=== PATIENT | male | born 1965 | race American Indian/Alaskan Native ===

== ENCOUNTER 2016-04-16 19:32 | Emergency (ER) | payer MEDICAID, OTHER ==
[2016-04-16 19:47] VITALS: BP 142/86
[2016-04-16] MEDS ORDERED: Bacitracin Oint 1 GM U/D Packet TOP ONE (20:05)
[2016-04-16] MEDS ORDERED: Lidocaine 1% 30 ML SDV INJECT ONE (20:05)
[2016-04-16 21:09] LABS: CHLORIDE,CL 96 mmol/L (101-111); SODIUM,NA 136 mmol/L (135-145)
[2016-04-16] MEDS ORDERED: oxyCODONE 5 MG Tab PO ONE (21:13)
[2016-04-16] MEDS ORDERED: Piperacillin/Tazobactam 3.375 GM in Sodium Chloride 0.9% 100 ML IV ONE (22:24)
[2016-04-16] MEDS ORDERED: Aspirin 325 MG Tab PO ONE (23:16)
--- NOTE | 2016-04-17 04:29 | EDM.PDOC ---
ED HPI ANIMAL BITE - General Time Seen by Provider: 04/16/16 20:00 Chief Complaint: Bite:Animal, Insect Stated Complaint: POSS SPIDER BITE LEFT KNEE Source of Information: Reports: Patient History Limitations: Reports: No limitations - History of Present Illness INITIAL COMMENTS - FREE TEXT/NARRATIVE: c/o pain swelling redness to left knee started approximately 20 hours prior, Possible spider bite. Similar previous to abdomen acouple of years ago resulting in large wound. Unsure to MRSA but ended with "some sort of staph infection" Duration: Reports: Hour(s):, Getting worse Location: Reports: lower extremity, left Quality: Reports: Throbbing Severity: severe Worsens with: Reports: Movement Left Knee Pain Sore (Numeric/FACES): 6 - Related Data Allergies Allergy/AdvReac Type Severity Reaction Status Date / Time hydrocodone Allergy Severe Hives Verified 04/16/16 19:47 morphine Allergy Severe Hives Verified 04/16/16 19:47 codeine Allergy Mild Hives Verified 04/16/16 19:47 acetaminophen Allergy Hives Verified 04/16/16 19:47 [From Darvocet-N] propoxyphene napsylate Allergy Hives Verified 04/16/16 19:47 [From Darvocet-N] red dye Allergy Hives Verified 04/16/16 19:47 tramadol Allergy Hives Verified 04/16/16 19:47 Home Meds: Home Meds Metoprolol Succinate [Toprol XL] 50 mg PO DAILY 08/12/13 [History] atorvaSTATin [Lipitor] 10 mg PO BEDTIME 08/25/13 [History] metFORMIN [metFORMIN XR] 500 mg PO BIDM 08/25/13 [History] Gabapentin [Gabapentin] 400 mg PO TID 04/24/14 [History] Naproxen [Naprosyn] 500 mg PO BID 04/24/14 [History] Albuterol [Proair HFA] 2 puff INH Q4H 12/30/14 [History] Ascorbic Acid [Vitamin C] 2 tab PO DAILY 12/30/14 [History] Coq10 1 tab PO DAILY 12/30/14 [History] Furosemide [Furosemide] 1 tab PO DAILY 12/30/14 [History] Lidocaine 5% [Lidoderm 5%] 1 patch TOP Q24H 12/30/14 [History] Lisinopril [Prinivil] 1 tab PO DAILY 12/30/14 [History] Vitamin B Complex [Vitamin B Complex] 2 tab PO DAILY 12/30/14 [History] Aspirin [Ecotrin] 81 mg PO DAILY 04/16/16 [History] Past Medical History Cardiovascular History: Reports: Bypass, CAD, High cholesterol, Hypertension Other Respiratory History: uses inhaler and has home O2, but doesn't know what has Gastrointestinal History: Reports: Hiatal hernia Genitourinary History: Reports: None Musculoskeletal History: Reports: Back pain, chronic Neurological History: Reports: None Psychiatric History: Reports: None Endocrine/Metabolic History: Reports: Diabetes, type II Hematologic History: Reports: None Immunologic History: Reports: None Oncologic (Cancer) History: Reports: None Dermatologic History: Reports: Other (see below) Other Dermatologic History: has open wound on stomach, just healed leg - Infectious Disease History Infectious Disease History: Reports: Chicken pox - Past Surgical History Head Surgeries/Procedures: Reports: None HEENT Surgical History: Reports: Tonsillectomy, Other (see below) Other HEENT Surgeries/Procedures: facial surgery Cardiovascular Surgical History: Reports: Carotid stents, Coronary artery bypass Musculoskeletal Surgical History: Reports: Arthroscopic knee Social & Family History - Tobacco Use Smoking Status *Q: Current Every Day Smoker Years of Tobacco use: 30 Packs/Tins Daily: 0.5 Used Tobacco, but Quit: Yes Month Tobacco Last Used: july Second Hand Smoke Exposure: Yes - Caffeine Use Caffeine Use: Reports: Coffee - Alcohol Use Days Per Week of Alcohol Use: 1 Number of Drinks Per Day: 6 Total Drinks Per Week: 6 - Recreational Drug Use Recreational Drug Use: No - Living Situation & Occupation Living situation: Reports: with family Occupation: disabled ED ROS GENERAL - Review of Systems Review Of Systems: See Below Constitutional: Denies: fever HEENT: Reports: No symptoms Respiratory: Reports: no symptoms Cardiovascular: Reports: No symptoms GI/Abdominal: Reports: No symptoms Musculoskeletal: Reports: leg pain Skin: Reports: wound Neurological: Reports: no symptoms ED EXAM, ANIMAL BITE - Physical Exam Exam: See Below Exam Limited By: No limitations General Appearance: alert, moderate distress, obese (morbid) Ears: normal external exam Nose: normal inspection Throat/Mouth: Normal inspection Head: atraumatic, normocephalic Neck: normal inspection Respiratory/Chest: no respiratory distress, lungs clear, normal breath sounds Cardiovascular: normal peripheral pulses, regular rate, rhythm Extremities: leg pain (left), limited range of motion, increased warmth. No: normal inspection, normal range of motion Neurological: alert, oriented, normal cognition. 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 streaking and redness to mid thigh on left, painful to light touch, warm. ) Course - Vital Signs Last Recorded V/S: Last Vital Signs Temp 97.6 F 04/16/16 19:41 Pulse 83 04/16/16 19:41 Resp 18 04/16/16 19:41 BP 142/86 H 04/16/16 19:41 Pulse Ox 96 04/16/16 19:41 - Orders/Labs/Meds Orders: Active Orders 24 hr Category Date Time Status CULTURE BLOOD [BC] Stat Lab 04/16/16 20:40 Results CULTURE BLOOD [BC] Stat Lab 04/16/16 20:45 Received CULTURE WOUND [RM] Stat Lab 04/16/16 20:24 Received Blood Culture x2 Reflex Set [OM.PC] Stat Oth 04/16/16 20:25 Ordered Labs: Laboratory Tests 04/16/16 04/16/16 04/16/16 Range/Units 20:45 20:45 20:45 WBC 15.8 H (5.0-10.0) 10^3/uL RBC 4.77 (4.6-6.2) 10^6/uL Hgb 14.8 (14.0-18.0) g/dL Hct 43.6 (40.0-54.0) % MCV 91.4 (80-100) fL MCH 31.0 (27.0-34.0) pg MCHC 33.9 (33.0-35.0) g/dL Plt Count 208 (150-450) 10^3/uL Neut % (Auto) 71.2 (42.2-75.2) % Lymph % (Auto) 16.4 L (20.5-50.1) % [place] % (Auto) 10.0 H (2-8) % Eos % (Auto) 1.8 (1.0-3.0) % Baso % (Auto) 0.6 (0.0-1.0) % Sodium 136 (135-145) mmol/L Potassium 4.0 (3.6-5.0) mmol/L Chloride 96 L (101-111) mmol/L Carbon Dioxide 31.0 (21.0-31.0) mmol/L Anion Gap 13.0 BUN 13 (7-18) mg/dL Creatinine 0.6 (0.6-1.3) mg/dL Est Cr Clr Drug Dosing 144.08 mL/min Estimated GFR (MDRD) > 60 BUN/Creatinine Ratio 21.66 Glucose 137 H (74-105) mg/dL Lactic Acid 0.8 (0.5-2.2) mmol/L Calcium 8.9 (8.4-10.2) mg/dl Total Bilirubin 0.6 (0.2-1.0) mg/dL AST 17 (10-42) IU/L ALT 25 (10-60) IU/L Alkaline Phosphatase 65 (42-121) IU/L Creatine Kinase (26-174) IU/L C-Reactive Protein (0.0-1.3) mg/dL Total Protein 7.4 (6.7-8.2) g/dl Albumin 3.8 (3.2-5.5) g/dl Globulin 3.6 Albumin/Globulin Ratio 1.06 04/16/16 04/16/16 Range/Units 20:45 20:45 WBC (5.0-10.0) 10^3/uL RBC (4.6-6.2) 10^6/uL Hgb (14.0-18.0) g/dL Hct (40.0-54.0) % MCV (80-100) fL MCH (27.0-34.0) pg MCHC (33.0-35.0) g/dL Plt Count (150-450) 10^3/uL Neut % (Auto) (42.2-75.2) % Lymph % (Auto) (20.5-50.1) % [place] % (Auto) (2-8) % Eos % (Auto) (1.0-3.0) % Baso % (Auto) (0.0-1.0) % Sodium (135-145) mmol/L Potassium (3.6-5.0) mmol/L Chloride (101-111) mmol/L Carbon Dioxide (21.0-31.0) mmol/L Anion Gap BUN (7-18) mg/dL Creatinine (0.6-1.3) mg/dL Est Cr Clr Drug Dosing mL/min Estimated GFR (MDRD) BUN/Creatinine Ratio Glucose (74-105) mg/dL Lactic Acid (0.5-2.2) mmol/L Calcium (8.4-10.2) mg/dl Total Bilirubin (0.2-1.0) mg/dL AST (10-42) IU/L ALT (10-60) IU/L Alkaline Phosphatase (42-121) IU/L Creatine Kinase 78 (26-174) IU/L C-Reactive Protein 8.1 H (0.0-1.3) mg/dL Total Protein (6.7-8.2) g/dl Albumin (3.2-5.5) g/dl Globulin Albumin/Globulin Ratio Meds: Medications Discontinued Medications Generic Name Dose Route Start Last Admin Trade Name Freq PRN Reason Stop Dose Admin Aspirin 325 mg 04/16/16 23:16 04/16/16 23:21 Aspirin PO 04/16/16 23:17 325 mg ONETIME ONE Administration Bacitracin 1 dose 04/16/16 20:05 04/16/16 20:45 Bacitracin Oint 1 Gm TOP 04/16/16 20:06 1 dose ONETIME ONE Administration Piperacillin Sod/Tazobactam 100 mls @ 200 mls/hr 04/16/16 22:24 04/16/16 22: 52 Sod 3.375 gm/ Sodium Chloride IV 04/16/16 22:53 200 mls/hr ONETIME ONE Administration Lidocaine HCl 30 ml 04/16/16 20:05 04/16/16 20:45 Xylocaine-Mpf 1% INJECT 04/16/16 20:06 30 ml ONETIME ONE Administration Oxycodone HCl 5 mg 04/16/16 21:13 04/16/16 21:20 Oxycodone PO 04/16/16 21:14 5 mg ONETIME ONE Administration - Radiology Interpretation Free Text/Narrative:: soft tissue swelling, left knee - Re-Assessments/Exams Free Text/Narrative Re-Assessment/Exam: painful with light touch and cleansing of left knee, attempt to obtain culture, patient requesting lidocaine prior to further exam/cleansing or wound culture. , left knee wound and surrounding area cleansed with betadine prep, 1ml 1% lidocaine injected superficially below punctate center, superficial with 113 blade, culture obtained, scant blood and cloudy fluid, Bacitracin, telfa kerlix dressing to wound. Free Text/Narrative Re-Assessment/Exam: TC consult Dr Horvath regarding patient who recommended patient be transferred to [facility] as Ortho would be available to consult. Dr. Lemos Ortho agreeable to consultation. Dr. Franz agreeable to transfer if Dr Horvath would evaluate and determine is any indication of compartment syndrome. Dr. Horvath in ED to [facility] and agrees no indication for compartment syndrome noting concern for septic bursitis secondary to insect bite. Tx via LRAS. Departure - Departure Time of Disposition: 23:20 Disposition: DC/Tfer to Acute Hospital 02 Condition: undetermined Clinical Impression: Knee pain, left anterior Cellulitis Qualifiers: Site of cellulitis: extremity Site of cellulitis of extremity: lower extremity Laterality: left Qualified Code(s): L03.116 - Cellulitis of left lower limb Insect bite Qualifiers: Encounter type: initial encounter Qualified Code(s): W57.XXXA - Bitten or stung by nonvenomous insect and other nonvenomous arthropods, initial encounter Referrals: Saturnino Marques MD [Primary Care Provider] - Forms: ED Department Discharge - My Orders Last 24 Hours: My Active Orders 04/16/16 20:24 CULTURE WOUND [RM] Stat 04/16/16 20:25 Blood Culture x2 Reflex Set [OM.PC] Stat 04/16/16 20:40 CULTURE BLOOD [BC] Stat 04/16/16 20:45 CULTURE BLOOD [BC] Stat - Assessment/Plan Last 24 Hours: My Active Orders 04/16/16 20:24 CULTURE WOUND [RM] Stat 04/16/16 20:25 Blood Culture x2 Reflex Set [OM.PC] Stat 04/16/16 20:40 CULTURE BLOOD [BC] Stat 04/16/16 20:45 CULTURE BLOOD [BC] Stat
== END 2016-04-16 23:23 ==
LOC: DL.ED 19:32 → EEVIPCON 19:32 → DL.ED 23:23
DX: L03.116 Cellulitis of left lower limb (principal); I25.10 Atherosclerotic heart disease of native coronary artery without angina pectoris; E78.00 Pure hypercholesterolemia, unspecified; I10 Essential (primary) hypertension; E11.9 Type 2 diabetes mellitus without complications; F17.210 Nicotine dependence, cigarettes, uncomplicated; Z98.890 Other specified postprocedural states; Z95.1 Presence of aortocoronary bypass graft; Z88.6 Allergy status to analgesic agent; Z88.8 Allergy status to other drugs, medicaments and biological substances; Z91.041 Radiographic dye allergy status; Z88.5 Allergy status to narcotic agent; Z79.899 Other long term (current) drug therapy; Z79.84 Long term (current) use of oral hypoglycemic drugs; Z79.82 Long term (current) use of aspirin; W57.XXXA Bitten or stung by nonvenomous insect and other nonvenomous arthropods, initial encounter
CPT/HCPCS: 10060; 36415; 73560; 80053; 82550; 83605; 85025; 86140; 87040; 87070; 87077; 87186; 96365; 99284; A9270; J2543; J7050

== ENCOUNTER 2020-01-12 10:33 | Emergency (ER) | payer MEDICAID ==
--- NOTE | 2020-01-12 11:20 | EDM.PDOC ---
"<Ashok Vanessaian - Last Filed: 01/12/20 14:30> ED HPI GENERAL MEDICAL PROBLEM - General Chief Complaint: Neuro Symptoms/Deficits Stated Complaint: RIGHT ARM NUMB, PREVIOUS BYPASS SURGERY, CRAMPING Time Seen by Provider: 01/12/20 10:55 - Related Data Allergies Allergy/AdvReac Type Severity Reaction Status Date / Time hydrocodone Allergy Severe Hives Verified 01/12/20 10:41 morphine Allergy Severe Hives Verified 01/12/20 10:41 codeine Allergy Mild Hives Verified 01/12/20 10:41 acetaminophen Allergy Hives Verified 01/12/20 10:41 [From Darvocet-N] propoxyphene napsylate Allergy Hives Verified 01/12/20 10:41 [From Darvocet-N] red dye Allergy Hives Verified 01/12/20 10:41 tramadol Allergy Hives Verified 01/12/20 10:41 Home Meds: Home Meds Metoprolol Succinate [Toprol XL] 50 mg PO DAILY 08/12/13 [History] atorvaSTATin [Lipitor] 10 mg PO BEDTIME 08/25/13 [History] metFORMIN [Glucophage XR] 500 mg PO BIDM 08/25/13 [History] Gabapentin 600 mg PO TID 04/24/14 [History] Ascorbic Acid [Vitamin C] 2,000 mg PO DAILY 12/30/14 [History] Furosemide 40 mg PO DAILY 12/30/14 [History] Lisinopril [Prinivil] 2.5 mg PO DAILY 12/30/14 [History] Vitamin B Complex 2 tab PO DAILY 12/30/14 [History] Glimepiride [Amaryl] 2 mg PO TID 10/14/18 [History] Ipratropium/Albuterol Sulfate [Iprat-Albut 0.5-3(2.5) MG/3 ML] 3 ml IH Q6H 10/14/18 [History] Dextromethorphan/guaiFENesin [Robitussin DM] 10 ml PO Q6H PRN #150 ml 10/16/18 [Rx] Nystatin [Nystatin Crm] 1 gm TOP BID tube 10/16/18 [Rx] Aspirin [Aspirin EC] 325 mg PO DAILY 01/12/20 [History] Ketorolac [Toradol] 10 mg PO Q6H PRN 01/12/20 [History] oxyCODONE 5 mg PO Q6H PRN 01/12/20 [History] Course - Re-Assessments/Exams Free Text/Narrative Re-Assessment/Exam: 01/12/20 14:31 I personally performed or re-performed the physical examination and medical decision making. I have verified all student documentation or findings, including history, physical exam and/or medical decision making. Departure - Departure Disposition: Home, Self-Care 01 Clinical Impression: Encounter for medical screening examination, Cervical radiculopathy - Discharge Information Instructions: Radicular Pain Referrals: Saturnino Marques MD [Primary Care Provider] - Forms: ED Department Discharge Additional Instructions: The exam and radiology findings were discussed with the patient. There is no evidence of acute findings. Follow-up with your PCP on Wednesday for ongoing symptom management. <Yasmeen Garrett - Last Filed: 01/12/20 16:36> #1 Interpretation EKG Date: 01/12/20 Time: 11:19 Rhythm: NSR Rate (Beats/Min): 69 [place]: Normal P-Wave: Present QRS: Wide ST-T: Normal QT: Normal Comparison: No Change EKG Interpretation Comments: NSR; No evidence of acute ischemia Course - Radiology Interpretation Free Text/Narrative:: [facility] Final Radiology Report Call: [phone] assistance Online chat: [email or web address] Name: HUMZA CONRAD Age: 54Years M Date: 01/12/2020 SSN: -- : [id number] Study: CT ANG CHEST Requesting Physician: Laxmi Rowell Images: [id number] Addl Studies: Provided Clinical History: hx aortic enlargement, murmur Contrast: With Contrast Medium: isovue 370 Contrast Amount: 100 mL Contrast Method: Intravenous (IV) Page 1 of 2 PROCEDURE INFORMATION: Exam: CT Angiography Chest With Contrast Exam date and time: 01/12/2020 11:47 AM Age: 54 years old Clinical indication: Other: HX aortic enlargement, murmur; Prior surgery; Surgery date: <1 month; Surgery type: Tracheotomy TECHNIQUE: Imaging protocol: Computed tomographic angiography of the chest with intravenous contrast. 3D rendering (Not supervised by radiologist): MIP and/or 3D reconstructed images were created and reviewed. Radiation optimization: All CT scans at this facility use at least one of these dose optimization techniques: automated exposure control; mA and/or kV adjustment per patient size (includes targeted exams where dose is matched to clinical indication); or iterative reconstruction. Contrast material: ISOVUE 370; Contrast volume: 100 ml; Contrast route: INTR AVENOUS (IV); COMPARISON: CT Chest w Cont 03/13/2019 2:05 PM FINDINGS: Tubes, catheters and devices: Tracheostomy tube in place with the tip approximately 4 cm above the mira. Pulmonary arteries: Dilated main pulmonary artery measuring up to 4.5 cm. Aorta: Thoracic aorta is normal in caliber with no evidence for aneurysm or dissection. Great vessels off aortic arch: The right subclavian artery is not well visualized due to artifact. Remainder of great vessels appear patent. Lungs: Patchy mosaic lung attenuation may relate to underlying air trapping/small airway disease. Scattered probable atelectasis as well. HUMZA CONRAD | Final Radiology Report CONFIDENTIALITY STATEMENT This report is intended only for use by the referring physician, and only in accordance with law. If you received this in error, call [phone]. Page 2 of 2 Pleural space: Unremarkable. No pneumothorax. No pleural effusion. Heart: Mild coronary artery calcification. Lymph nodes: Minimally enlarged precarinal lymph node measuring 1.4 cm again noted. Minimally prominent subcarinal lymph node and small hilar lymph nodes unchanged. Few scattered mildly prominent retrocrural lymph nodes measuring up to 8 mm unchanged. Bones/joints: Postsurgical changes with sternotomy wires. Soft tissues: Unremarkable. IMPRESSION: 1. Dilated main pulmonary artery measuring 4.5 cm. May indicate underlying pulmonary arterial hypertension. 2. Thoracic aorta is normal in caliber with no evidence for aneurysm or dissection. Minimal atherosclerotic changes. 3. No interval change in a few mildly enlarged thoracic lymph nodes. 4. See above for other details. Thank you for allowing us to participate in the care of your patient. Dictated and Authenticated by: Misael Urbano MD 01/12/2020 3:17 PM Central Time ([place] & [place]) <Laxmi Rowell - Last Filed: 01/12/20 17:56> ED HPI GENERAL MEDICAL PROBLEM - General Source of Information: Reports: Patient, RN, RN Notes Reviewed History Limitations: Reports: No Limitations - History of Present Illness INITIAL COMMENTS - FREE TEXT/NARRATIVE: 54 year old male with significant medical history to ER ambulatory with c/o right hand numbness and right bicep pain that first occurred yesterday am while eating breakfast. pt states he lost total control of his hand or ability to hold his utensils. states CMS spontaneously resolved, but occurred again this am while eating breakfast. pt does have trach that was placed 3 weeks ago for sleep apnea. reports aortic enlargement for which he is scheduled to have a stress test in 3 months. hx of CABG in 2013. reports he was moving furniture a few days ago and is unsure if he pinched a nerve in his back. denies recent illnesses, states he was tested for COVID with his trach placement that was negative. States he had surgery done by Dr. Aragon in [place]. pt does report being diabetic. Past Medical History HEENT History: Reports: Otitis Media Cardiovascular History: Reports: Bypass, CAD, High Cholesterol, Hypertension Respiratory History: Reports: SOB Other Respiratory History: uses inhaler and has home O2, but doesn't know what has Gastrointestinal History: Reports: GERD, Hiatal Hernia Genitourinary History: Reports: None Musculoskeletal History: Reports: Back Pain, Chronic Neurological History: Reports: None Psychiatric History: Reports: None Endocrine/Metabolic History: Reports: Diabetes, Type II Hematologic History: Reports: None Immunologic History: Reports: None Oncologic (Cancer) History: Reports: None Dermatologic History: Reports: Other (See Below) Other Dermatologic History: Boil under L) arm (10/14/18) - Infectious Disease History Infectious Disease History: Reports: Chicken Pox - Past Surgical History HEENT Surgical History: Reports: Tonsillectomy, Other (See Below) Cardiovascular Surgical History: Reports: Carotid Stents, Coronary Artery Bypass Musculoskeletal Surgical History: Reports: Arthroscopic Knee Social & Family History - Family History Family Medical History: No Pertinent Family History - Caffeine Use Caffeine Use: Reports: Coffee - Living Situation & Occupation Living situation: Reports: with Family Occupation: Disabled ED ROS GENERAL - Review of Systems Review Of Systems: Comprehensive ROS is negative, except as noted in HPI. ED EXAM, GENERAL - Physical Exam Exam: See Below Exam Limited By: No Limitations General Appearance: Alert, Moderate Distress Eye Exam: Bilateral Eye: EOMI, Nystagmus (to the right), PERRL Ears: Normal External Exam Nose: Normal Inspection Throat/Mouth: Normal Inspection, Other (tracheostomy with dressings in place, clean, dry, intact, tender to position) Head: Atraumatic, Normocephalic Neck: Other (tracheostomy with dressings in place, clean, dry, intact, tender to position) Respiratory/Chest: No Respiratory Distress, Decreased Breath Sounds, Rhonchi (coarse to right base that clears with cough), Accessory Muscle Use, Other (tracheostomy with dressings in place, clean, dry, intact, tender to position). No: No Accessory Muscle Use Cardiovascular: Regular Rate, Rhythm, No Edema, Systolic Murmur (Grade 2/6, loudest @ pulmonic, not heard @ carotids). No: No Murmur GI/Abdominal: Normal Bowel Sounds, Soft, Non-Tender (Male) Exam: Deferred Rectal (Males) Exam: Deferred Back Exam: Normal Inspection, Vertebral Tenderness (thoracic) Extremities: Normal Inspection, Normal Range of Motion Neurological: Alert, Oriented Psychiatric: Normal Affect, Normal Mood Skin Exam: Warm, Dry, Intact, Normal Color Lymphatic: No Adenopathy Course - Vital Signs Last Recorded V/S: Last Vital Signs Temp 97.9 F 01/12/20 14:02 Pulse 67 01/12/20 14:02 Resp 20 01/12/20 14:02 BP 121/71 01/12/20 14:02 Pulse Ox 93 L 01/12/20 14:02 - Orders/Labs/Meds Orders: Active Orders 24 hr Category Date Time Status Chest 2V [CR] Urgent Exams 01/12/20 11:06 Ordered CULTURE BLOOD [BC] Stat Lab 01/12/20 12:08 Received Blood Culture x2 Reflex Set [OM.PC] Stat Oth 01/12/20 11:50 Ordered Labs: Laboratory Tests 01/12/20 01/12/20 01/12/20 Range/Units 11:10 11:10 11:32 WBC 10.3 H (5.0-10.0) 10^3/uL RBC 4.82 (4.6-6.2) 10^6/uL Hgb 15.4 (14.0-18.0) g/dL Hct 44.1 (40.0-54.0) % MCV 91.5 (80-100) fL MCH 32.0 (27.0-34.0) pg MCHC 34.9 (33.0-35.0) g/dL Plt Count 193 (150-450) 10^3/uL Neut % (Auto) 63.7 (42.2-75.2) % Lymph % (Auto) 23.6 (20.5-50.1) % [place] % (Auto) 8.6 H (2-8) % Eos % (Auto) 3.1 H (1.0-3.0) % Baso % (Auto) 1.0 (0.0-1.0) % Sodium 137 (136-145) mmol/L Potassium 4.3 (3.5-5.1) mmol/L Chloride 100 (98-107) mmol/L Carbon Dioxide 30 (21-32) mmol/L Anion Gap 11.3 (7-13) mEq/L BUN 13 (7-18) mg/dL Creatinine 0.89 (0.70-1.30) mg/dL Est Cr Clr Drug Dosing 92.87 mL/min Estimated GFR (MDRD) > 60 BUN/Creatinine Ratio 14.6 (No establ ref range) Glucose 194 H (74-99) mg/dL Lactic Acid (0.4-2.0) mmol/L Calcium 9.5 (8.5-10.1) mg/dL Phosphorus 5.7 H (2.6-4.7) mg/dL Magnesium 1.8 (1.8-2.4) mg/dL Total Bilirubin 0.3 (0.2-1.0) mg/dL AST 16 (15-37) U/L ALT 47 (16-63) U/L Alkaline Phosphatase 95 (46-116) U/L Troponin I < 0.017 (0.000-0.056) ng/mL C-Reactive Protein 1.7 H (0.0-0.9) mg/dL Total Protein 7.1 (6.4-8.2) g/dL Albumin 3.5 (3.4-5.0) g/dL Globulin 3.6 Albumin/Globulin Ratio 1.0 SARS-CoV-2 RNA (RIMA) Negative (NEGATIVE) 01/12/20 01/12/20 Range/Units 12:08 15:27 WBC (5.0-10.0) 10^3/uL RBC (4.6-6.2) 10^6/uL Hgb (14.0-18.0) g/dL Hct (40.0-54.0) % MCV (80-100) fL MCH (27.0-34.0) pg MCHC (33.0-35.0) g/dL Plt Count (150-450) 10^3/uL Neut % (Auto) (42.2-75.2) % Lymph % (Auto) (20.5-50.1) % [place] % (Auto) (2-8) % Eos % (Auto) (1.0-3.0) % Baso % (Auto) (0.0-1.0) % Sodium (136-145) mmol/L Potassium (3.5-5.1) mmol/L Chloride (98-107) mmol/L Carbon Dioxide (21-32) mmol/L Anion Gap (7-13) mEq/L BUN (7-18) mg/dL Creatinine (0.70-1.30) mg/dL Est Cr Clr Drug Dosing mL/min Estimated GFR (MDRD) BUN/Creatinine Ratio (No establ ref range) Glucose (74-99) mg/dL Lactic Acid 1.4 (0.4-2.0) mmol/L Calcium (8.5-10.1) mg/dL Phosphorus (2.6-4.7) mg/dL Magnesium (1.8-2.4) mg/dL Total Bilirubin (0.2-1.0) mg/dL AST (15-37) U/L ALT (16-63) U/L Alkaline Phosphatase (46-116) U/L Troponin I (0.000-0.056) ng/mL C-Reactive Protein (0.0-0.9) mg/dL Total Protein (6.4-8.2) g/dL Albumin (3.4-5.0) g/dL Globulin Albumin/Globulin Ratio SARS-CoV-2 RNA (RIMA) Negative (NEGATIVE) Meds: Medications Discontinued Medications Generic Name Dose Route Start Last Admin Trade Name Freq PRN Reason Stop Dose Admin Diphenhydramine HCl 50 mg 01/12/20 12:58 01/12/20 13:05 Benadryl IVPUSH 01/12/20 12:59 50 mg ONETIME ONE Administration Sodium Chloride 1,000 mls @ 999 mls/hr 01/12/20 12:58 01/12/20 13:07 Normal Saline IV 01/12/20 13:58 999 mls/hr .BOLUS ONE Administration Iopamidol 100 ml 01/12/20 11:30 01/12/20 13:00 Isovue-370 (76%) IVPUSH 01/12/20 11:31 100 ml ONETIME ONE Administration Orphenadrine Citrate 60 mg 01/12/20 12:54 01/12/20 13:08 Norflex IM 01/12/20 12:55 60 mg ONETIME ONE Administration Departure - Departure Time of Disposition: 16:30 Condition: Fair - Discharge Information *PRESCRIPTION DRUG MONITORING PROGRAM REVIEWED*: No *COPY OF PRESCRIPTION DRUG MONITORING REPORT IN PATIENT ERIKA: No Sepsis Event Note (ED) - Evaluation Sepsis Screening Result: No Definite Risk - Focused Exam Vital Signs: Vital Signs Temp Pulse Resp BP Pulse Ox 01/12/20 14:02 97.9 F 67 20 121/71 93 L 01/12/20 10:36 97.5 F 80 16 123/70 97 - My Orders Last 24 Hours: My Active Orders 01/12/20 11:06 Chest 2V [CR] Urgent 01/12/20 11:50 Blood Culture x2 Reflex Set [OM.PC] Stat 01/12/20 12:08 CULTURE BLOOD [BC] Stat - Assessment/Plan Last 24 Hours: My Active Orders 01/12/20 11:06 Chest 2V [CR] Urgent 01/12/20 11:50 Blood Culture x2 Reflex Set [OM.PC] Stat 01/12/20 12:08 CULTURE BLOOD [BC] Stat"
[2020-01-12] MEDS ORDERED: Iopamidol 612 MG/ML 100 ML Bottle IVPUSH ONE (11:28)
[2020-01-12] MEDS ORDERED: Iopamidol 755 Mg/ML 100 ML Bottle IVPUSH ONE (11:30)
[2020-01-12 11:37] LABS: ANION GAP 11.3 mEq/L (7-13); CHLORIDE,CL 100 mmol/L (98-107); SODIUM,NA 137 mmol/L (136-145)
[2020-01-12] MEDS ORDERED: Orphenadrine 60 MG/2 ML Inj IM ONE (12:54)
[2020-01-12] MEDS ORDERED: diphenhydrAMINE 50 MG/ML SDV IVPUSH ONE (12:58)
[2020-01-12] MEDS ORDERED: Sodium Chloride 0.9% 1,000 ML IV ONE (12:58)
--- NOTE | 2020-01-12 13:37 | CT ---
EXAMINATION: Cervical/thoracic Spine wo Cont SEX: Male AGE: 54 years CLINICAL HISTORY: 54-year-old hypertensive 320 pound diabetic male smoker complaining of bilateral (intermittent) ARM NUMBNESS and MID BACK PAIN who significantly had a tracheostomy (tracheal stenosis) 3 weeks ago. No other known trauma. Scan technique: Volume acquisition of data unenhanced CT scan of the cervical and thoracic spine obtained without contrast while patient was lying supine on the Siemens multislice scanner [place], [place]. All data archived in the PACS system for storage, reformatting axial/sagittal/coronal planes and study (bone and soft tissue windows). Interpretation: 1. Obesity. Midline tracheostomy tube. Sternotomy wires. Cardiomegaly. No alveolar edema. 2. Homogeneous normal bone mineral density. Normal height and alignment of 7 cervical vertebra and all thoracic vertebral bodies. No sign of pathologic skeletal lesion, cervical/thoracic fracture or dislocation. 3. Multilevel mid/lower thoracic disc disease i.e. interspace narrowing; hypertrophic marginal spondylosis. 4. No cervical disc disease, hypertrophic spondylosis, fracture or dislocation. 5. No prevertebral or paravertebral soft tissue abnormalities and uncompromised bony spinal canal volume. 6. Note: Peripheral "groundglass" interstitial densities both lung pyle suggest Covid pneumonia. Clinical? CONCLUSION: Multilevel disc disease thoracic spine and hypertrophic spondylosis dorsal spine. No pathologic skeletal lesion, cervical thoracic fracture or dislocation. Abnormal heart and lung pyle.
--- NOTE | 2020-01-12 13:39 | CT ---
EXAMINATION: Thoracic Spine wo Cont SEX: Male AGE: 54 years CLINICAL HISTORY: 54-year-old 320 pound diabetic male with intermittent kalpesh arm numb, mid back pain. Conclusion: Multilevel mid and lower thoracic disc disease with associated hypertrophic spondylosis. No sign of pathologic skeletal lesion, thoracic fracture or spondylolisthesis (see cervical spine dictation).
[2020-01-12 14:03] VITALS: BP 121/71; PULSE 67
--- NOTE | 2020-01-12 15:17 | CT ---
PROCEDURE INFORMATION: Exam: CT Angiography Chest With Contrast Exam date and time: 01/12/2020 11:47 AM Age: 54 years old Clinical indication: Other: HX aortic enlargement, murmur; Prior surgery; Surgery date: <1 month; Surgery type: Tracheotomy TECHNIQUE: Imaging protocol: Computed tomographic angiography of the chest with intravenous contrast. 3D rendering (Not supervised by radiologist): MIP and/or 3D reconstructed images were created and reviewed. Radiation optimization: All CT scans at this facility use at least one of these dose optimization techniques: automated exposure control; mA and/or kV adjustment per patient size (includes targeted exams where dose is matched to clinical indication); or iterative reconstruction. Contrast material: ISOVUE 370; Contrast volume: 100 ml; Contrast route: INTRAVENOUS (IV); COMPARISON: CT Chest w Cont 03/13/2019 2:05 PM FINDINGS: Tubes, catheters and devices: Tracheostomy tube in place with the tip approximately 4 cm above the mira. Pulmonary arteries: Dilated main pulmonary artery measuring up to 4.5 cm. Aorta: Thoracic aorta is normal in caliber with no evidence for aneurysm or dissection. Great vessels off aortic arch: The right subclavian artery is not well visualized due to artifact. Remainder of great vessels appear patent. Lungs: Patchy mosaic lung attenuation may relate to underlying air trapping/small airway disease. Scattered probable atelectasis as well. Pleural space: Unremarkable. No pneumothorax. No pleural effusion. Heart: Mild coronary artery calcification. Lymph nodes: Minimally enlarged precarinal lymph node measuring 1.4 cm again noted. Minimally prominent subcarinal lymph node and small hilar lymph nodes unchanged. Few scattered mildly prominent retrocrural lymph nodes measuring up to 8 mm unchanged. Bones/joints: Postsurgical changes with sternotomy wires. Soft tissues: Unremarkable. IMPRESSION: 1. Dilated main pulmonary artery measuring 4.5 cm. May indicate underlying pulmonary arterial hypertension. 2. Thoracic aorta is normal in caliber with no evidence for aneurysm or dissection. Minimal atherosclerotic changes. 3. No interval change in a few mildly enlarged thoracic lymph nodes. 4. See above for other details.
--- NOTE | 2020-01-12 15:31 | CT ---
PROCEDURE INFORMATION: Exam: CT Angiography Abdomen With Contrast Exam date and time: 01/12/2020 11:47 AM Age: 54 years old Clinical indication: Other: HX aortic enlargement, murmur; Prior surgery; Surgery date: <1 month; Surgery type: Tracheotomy TECHNIQUE: Imaging protocol: Computed tomographic angiography images of the abdomen with intravenous contrast material. 3D rendering (Not supervised by radiologist): MIP and/or 3D reconstructed images were created and reviewed. Radiation optimization: All CT scans at this facility use at least one of these dose optimization techniques: automated exposure control; mA and/or kV adjustment per patient size (includes targeted exams where dose is matched to clinical indication); or iterative reconstruction. Contrast material: ISOVUE 370; Contrast volume: 100 ml; Contrast route: INTRAVENOUS (IV); COMPARISON: No relevant prior studies available. FINDINGS: Aorta: Moderate atherosclerotic changes of the abdominal aorta. 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 Maximum aortic diameter in this region measures 2.4 cm. Celiac trunk and mesenteric arteries: The prominent calcification at the origin of the SMA with probable less than 50% narrowing. Patent. RENEE is patent. Celiac patent Renal arteries: There are 2 right renal arteries, patent. The inferior right renal artery is somewhat diminutive in size. There are 2 left renal arteries with the superior artery diminutive in size. Inferior left renal artery is patent. Superior left renal artery is quite small and difficult to evaluate patency. Left iliac arteries: Prominent soft plaque along the proximal aspect of the left common iliac artery. Other arteries: Evaluation of the abdominal/pelvic organs limited due to arterial phase imaging only. Liver: Normal. No mass. Gallbladder and bile ducts: Gallbladder is mildly contracted. Pancreas: Normal. No ductal dilation. Spleen: Normal. No splenomegaly. Adrenals: Normal. No mass. Kidneys and ureters: Normal. No hydronephrosis. Stomach and bowel: Unremarkable. No obstruction. No mucosal thickening. Lymph nodes: A few mildly prominent retrocrural lymph nodes identified. Intraperitoneal space: Unremarkable. No free air. No significant fluid collection. Bones/joints: Unremarkable. No acute fracture. No dislocation. Soft tissues: Unremarkable. IMPRESSION: 1. Moderate atherosclerotic changes of the abdominal aorta as above. Minimal ectasia/aneurysm distal abdominal aorta with a maximum aortic diameter in this region 2.4 cm. 2. Atherosclerotic changes of aortic branch vessels as detailed above. 3. A few mildly prominent retrocrural lymph nodes unchanged.
== END 2020-01-12 16:48 | disposition home or self-care (01) ==
LOC: DL.ED 10:33
DX: M54.12 Radiculopathy, cervical region (principal); I25.10 Atherosclerotic heart disease of native coronary artery without angina pectoris; E78.00 Pure hypercholesterolemia, unspecified; I10 Essential (primary) hypertension; E11.9 Type 2 diabetes mellitus without complications; Z88.6 Allergy status to analgesic agent; Z88.5 Allergy status to narcotic agent; Z88.8 Allergy status to other drugs, medicaments and biological substances; Z95.1 Presence of aortocoronary bypass graft; Z79.82 Long term (current) use of aspirin; Z20.828 Contact with and (suspected) exposure to other viral communicable diseases; Z79.84 Long term (current) use of oral hypoglycemic drugs
CPT/HCPCS: 36415; 71275; 72125; 72128; 74175; 80053; 83605; 83735; 84100; 84484; 85025; 86140; 87040; 87635; 93005; 96372; 96374; 99284; J1200; J2360; J7030; Q9967; U0002

== ENCOUNTER 2020-01-25 01:36 | Emergency (ER) | payer MEDICAID ==
[2020-01-25 02:29] VITALS: BP 132/58; PULSE 87
[2020-01-25 03:29] LABS: CHLORIDE,CL 97 mmol/L (98-107); SODIUM,NA 133 mmol/L (136-145)
--- NOTE | 2020-01-25 04:09 | CR ---
PROCEDURE INFORMATION: Exam: XR Chest, 1 View Exam date and time: 01/25/2020 3:26 AM Age: 54 years old Clinical indication: Cough; Prior surgery; Surgery date: 6+ months; Additional info: Cough, blood around trach cannula TECHNIQUE: Imaging protocol: XR of the chest Views: 1 view. COMPARISON: CT Ang Chest 01/12/2020 11:47 AM FINDINGS: Tubes, catheters and devices: Tracheostomy tube in good position. Status post open heart surgery with sternal wires noted Lungs: Unremarkable. No consolidation. Pleural space: Unremarkable. No pleural effusion. No pneumothorax. Heart/Mediastinum: Mild cardiomegaly. Bones/joints: Unremarkable. IMPRESSION: No acute infiltrate or effusion.
--- NOTE | 2020-01-25 04:21 | EDM.PDOC ---
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 Denies fever or chills. has had sore throat and nasal drainage x 3 days. Voice seemed hoarse this morning. Covid last done on 2 weeks ago. Denies exposure, Vague on reasoning for trach, present x 2 months. States had obstruction and airway collapsed. Changes inner cannula daily. Has humidifier mask but does not use. Does not have need to suction at home. No prior episodes with any bleeding. No different activity. Continues to smoke. Treatments GAME PROGRAMER: Reports: Other (see below) Other Treatments GAME PROGRAMER: oxycodone. Throat Pain Score (Numeric/FACES): 7 - Related Data Allergies Allergy/AdvReac Type Severity Reaction Status Date / Time hydrocodone Allergy Severe Hives Verified 01/25/20 02:29 morphine Allergy Severe Hives Verified 01/25/20 02:29 codeine Allergy Mild Hives Verified 01/25/20 02:29 acetaminophen Allergy Hives Verified 01/25/20 02:29 [From Darvocet-N] propoxyphene napsylate Allergy Hives Verified 01/25/20 02:29 [From Darvocet-N] red dye Allergy Hives Verified 01/25/20 02:29 tramadol Allergy Hives Verified 01/25/20 02:29 Home Meds: Home Meds Metoprolol Succinate [Toprol XL] 50 mg PO DAILY 08/12/13 [History] atorvaSTATin [Lipitor] 10 mg PO BEDTIME 08/25/13 [History] metFORMIN [Glucophage XR] 500 mg PO BIDM 08/25/13 [History] Gabapentin 600 mg PO TID 04/24/14 [History] Ascorbic Acid [Vitamin C] 2,000 mg PO DAILY 12/30/14 [History] Furosemide 40 mg PO DAILY 12/30/14 [History] Lisinopril [Prinivil] 2.5 mg PO DAILY 12/30/14 [History] Vitamin B Complex 2 tab PO DAILY 12/30/14 [History] Glimepiride [Amaryl] 2 mg PO TID 10/14/18 [History] Ipratropium/Albuterol Sulfate [Iprat-Albut 0.5-3(2.5) MG/3 ML] 3 ml IH Q6H 10/14/18 [History] Dextromethorphan/guaiFENesin [Robitussin DM] 10 ml PO Q6H PRN #150 ml 10/16/18 [Rx] Nystatin [Nystatin Crm] 1 gm TOP BID tube 10/16/18 [Rx] Aspirin [Aspirin EC] 325 mg PO DAILY 01/12/20 [History] Ketorolac [Toradol] 10 mg PO Q6H PRN 01/12/20 [History] oxyCODONE 5 mg PO Q6H PRN 01/12/20 [History] Past Medical History HEENT History: Reports: Otitis Media Cardiovascular History: Reports: Bypass, CAD, High Cholesterol, Hypertension Respiratory History: Reports: Sleep Apnea, SOB Other Respiratory History: uses inhaler and has home O2, but doesn't know what has Gastrointestinal History: Reports: GERD, Hiatal Hernia Genitourinary History: Reports: None Musculoskeletal History: Reports: Back Pain, Chronic Neurological History: Reports: None Psychiatric History: Reports: None Endocrine/Metabolic History: Reports: Diabetes, Type II Hematologic History: Reports: None Immunologic History: Reports: None Oncologic (Cancer) History: Reports: None Dermatologic History: Reports: Other (See Below) Other Dermatologic History: Boil under L) arm (10/14/18) - Infectious Disease History Infectious Disease History: Reports: Chicken Pox - Past Surgical History Head Surgeries/Procedures: Reports: None HEENT Surgical History: Reports: Tonsillectomy, Other (See Below) 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 Cardiovascular Surgical History: Reports: Carotid Stents, Coronary Artery Bypass Respiratory Surgical History: Reports: Tracheostomy Other Respiratory Surgeries/Procedures: now closed GI Surgical History: Reports: None Musculoskeletal Surgical History: Reports: Arthroscopic Knee Social & Family History - Family History Family Medical History: No Pertinent Family History - Tobacco Use Tobacco Use Status *Q: Current Every Day Tobacco User Years of Tobacco use: 13 Packs/Tins Daily: 0.5 - Caffeine Use Caffeine Use: Reports: Coffee - Recreational Drug Use Recreational Drug Use: No - Living Situation & Occupation Living situation: Reports: with Family Occupation: Disabled ED ROS GENERAL - Review of Systems Review Of Systems: Comprehensive ROS is negative, except as noted in HPI. ED EXAM, GENERAL - Physical Exam Exam: See Below Exam Limited By: No Limitations General Appearance: Alert, Anxious, Obese Eye Exam: Bilateral Eye: EOMI Ears: Normal External Exam Nose: Normal Inspection Throat/Mouth: Inflammation Head: Atraumatic, Normocephalic Neck: Other (trach) Respiratory/Chest: No Respiratory Distress Cardiovascular: Normal Peripheral Pulses, Regular Rate, Rhythm GI/Abdominal: Normal Bowel Sounds Extremities: Normal Range of Motion Neurological: Alert, Oriented, Normal Cognition Psychiatric: Anxious Skin Exam: Warm, Dry, Intact. No: Wound/Incision Course - Vital Signs Last Recorded V/S: Last Vital Signs Temp 96.4 F L 01/25/20 01:50 Pulse 87 01/25/20 01:50 Resp 20 01/25/20 01:50 BP 132/58 L 01/25/20 01:50 Pulse Ox 94 L 01/25/20 01:50 - Orders/Labs/Meds Orders: Active Orders 24 hr Category Date Time Status CORONAVIRUS COVID-19 RIMA [MOLEC] Stat Lab 01/25/20 03:52 Received CULTURE STREP A CONFIRMATION [RM] Stat Lab 01/25/20 03:52 Results STREP SCRN A RAPID W CULT CONF [RM] Stat Lab 01/25/20 03:52 Results Isolation [COMM] Routine Oth 01/25/20 03:58 Active Labs: Laboratory Tests 01/25/20 01/25/20 01/25/20 Range/Units 03:04 03:04 03:04 WBC 11.2 H (5.0-10.0) 10^3/uL RBC 4.97 (4.6-6.2) 10^6/uL Hgb 15.6 (14.0-18.0) g/dL Hct 45.4 (40.0-54.0) % MCV 91.3 (80-100) fL MCH 31.4 (27.0-34.0) pg MCHC 34.4 (33.0-35.0) g/dL Plt Count 221 (150-450) 10^3/uL Neut % (Auto) 64.1 (42.2-75.2) % Lymph % (Auto) 21.6 (20.5-50.1) % [place] % (Auto) 9.6 H (2-8) % Eos % (Auto) 4.0 H (1.0-3.0) % Baso % (Auto) 0.7 (0.0-1.0) % PT 10.0 (9.0-12.0) SEC INR 1.1 (0.9-1.2) Sodium 133 L (136-145) mmol/L Potassium 4.0 (3.5-5.1) mmol/L Chloride 97 L (98-107) mmol/L Carbon Dioxide 31 (21-32) mmol/L Anion Gap 9.0 (7-13) mEq/L BUN 12 (7-18) mg/dL Creatinine 0.84 (0.70-1.30) mg/dL Est Cr Clr Drug Dosing 98.39 mL/min Estimated GFR (MDRD) > 60 BUN/Creatinine Ratio 14.3 (No establ ref range) Glucose 180 H (74-99) mg/dL Calcium 9.2 (8.5-10.1) mg/dL Total Bilirubin 0.3 (0.2-1.0) mg/dL AST 15 (15-37) U/L ALT 37 (16-63) U/L Alkaline Phosphatase 106 (46-116) U/L Total Protein 7.6 (6.4-8.2) g/dL Albumin 3.6 (3.4-5.0) g/dL Globulin 4.0 Albumin/Globulin Ratio 0.9 - Re-Assessments/Exams Free Text/Narrative Re-Assessment/Exam: 01/25/20 04:52 Trach dressing remains dry no bleeding, Cannula removed small amount old blood on tip. Rare non productive cough. No acute distress. Departure - Departure Time of Disposition: 05:10 Disposition: Home, Self-Care 01 Condition: Good Clinical Impression: Tracheostomy care, Hemoptysis, unspecified - Discharge Information *PRESCRIPTION DRUG MONITORING PROGRAM REVIEWED*: No *COPY OF PRESCRIPTION DRUG MONITORING REPORT IN PATIENT ERIKA: No Instructions: How to Clean a Tracheostomy Tube, Adult, [id number] Forms: ED Department Discharge Additional Instructions: TC to [facility] today to up date. Clinic follow up on Wednesday recheck Urgent follow up if recurrent bleeding Shortness of breath or fever humidifier Sepsis Event Note (ED) - Evaluation Sepsis Screening Result: No Definite Risk - Focused Exam Vital Signs: Vital Signs Temp Pulse Resp BP Pulse Ox 01/25/20 01:50 96.4 F L 87 20 132/58 L 94 L - My Orders Last 24 Hours: My Active Orders 01/25/20 03:52 CORONAVIRUS COVID-19 RIMA [MOLEC] Stat CULTURE STREP A CONFIRMATION [RM] Stat STREP SCRN A RAPID W CULT CONF [RM] Stat 01/25/20 03:58 Isolation [COMM] Routine - Assessment/Plan Last 24 Hours: My Active Orders 01/25/20 03:52 CORONAVIRUS COVID-19 RIMA [MOLEC] Stat CULTURE STREP A CONFIRMATION [RM] Stat STREP SCRN A RAPID W CULT CONF [RM] Stat 01/25/20 03:58 Isolation [COMM] Routine
== END 2020-01-25 05:07 | disposition home or self-care (01) ==
LOC: DL.ED 01:36
DX: R04.2 Hemoptysis (principal); E78.00 Pure hypercholesterolemia, unspecified; I10 Essential (primary) hypertension; E11.9 Type 2 diabetes mellitus without complications; I25.10 Atherosclerotic heart disease of native coronary artery without angina pectoris; F17.210 Nicotine dependence, cigarettes, uncomplicated; Z95.1 Presence of aortocoronary bypass graft; Z43.0 Encounter for attention to tracheostomy; Z88.5 Allergy status to narcotic agent; Z88.6 Allergy status to analgesic agent; Z91.041 Radiographic dye allergy status; Z79.84 Long term (current) use of oral hypoglycemic drugs; Z79.82 Long term (current) use of aspirin; Z79.899 Other long term (current) drug therapy; Z20.828 Contact with and (suspected) exposure to other viral communicable diseases
CPT/HCPCS: 36415; 71045; 80053; 85025; 85610; 87081; 87430; 87804; 99283; 99285-25; U0002

== ENCOUNTER 2020-05-12 13:06 | Emergency (ER) | payer MEDICAID ==
[2020-05-12 13:23] VITALS: BP 159/90; PULSE 88
[2020-05-12] MEDS ORDERED: Ibuprofen 800 MG Tab PO ONE (13:25)
[2020-05-12] MEDS ORDERED: Ibuprofen 800 MG Tab ONE (13:27)
--- NOTE | 2020-05-12 13:29 | EDM.PDOC ---
Scribed by Barbara Graham 05/12/20 1322 for Ashok Vanessa MD ED HPI GENERAL MEDICAL PROBLEM - General Chief Complaint: Respiratory Problem Stated Complaint: AMBULANCE Time Seen by Provider: 05/12/20 13:19 Source of Information: Reports: Patient, EMS, EMS Notes Reviewed, RN, RN Notes Reviewed History Limitations: Reports: No Limitations - History of Present Illness INITIAL COMMENTS - FREE TEXT/NARRATIVE: Patient arrives by [facility] with [facility] complaint of a blood clot stuck in his trach. 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 Not scheduled to ENT until June. Denies fever or any other complaints. Patient has supplies at home but does not do trach lavage because he does not like it. Duration: Recurring Location: Reports: Other (Tracheostomy) Severity: Moderate Improves with: Reports: None Worsens with: Reports: None Associated Symptoms: Reports: No Other Symptoms - Related Data Allergies Allergy/AdvReac Type Severity Reaction Status Date / Time hydrocodone Allergy Severe Hives Verified 05/12/20 13:14 morphine Allergy Severe Hives Verified 05/12/20 13:14 codeine Allergy Mild Hives Verified 05/12/20 13:14 acetaminophen Allergy Hives Verified 05/12/20 13:14 [From Darvocet-N] propoxyphene napsylate Allergy Hives Verified 05/12/20 13:14 [From Darvocet-N] red dye Allergy Hives Verified 05/12/20 13:14 tramadol Allergy Hives Verified 05/12/20 13:14 Home Meds: Home Meds Metoprolol Succinate [Toprol XL] 50 mg PO DAILY 08/12/13 [History] atorvaSTATin [Lipitor] 40 mg PO BEDTIME 08/25/13 [History] metFORMIN [Glucophage XR] 1,000 mg PO BIDM 08/25/13 [History] Gabapentin 600 mg PO TID 04/24/14 [History] Ascorbic Acid [Vitamin C] 3,000 mg PO DAILY 12/30/14 [History] Furosemide 40 mg PO DAILY 12/30/14 [History] Lisinopril [Prinivil] 5 mg PO DAILY 12/30/14 [History] Vitamin B Complex 2 tab PO DAILY 12/30/14 [History] Glimepiride [Amaryl] 4 mg PO BID 10/14/18 [History] Ipratropium/Albuterol Sulfate [Iprat-Albut 0.5-3(2.5) MG/3 ML] 3 ml IH Q6H PRN 10/14/18 [History] Aspirin [Aspirin EC] 325 mg PO DAILY 01/12/20 [History] Ketorolac [Toradol] 10 mg PO Q6H PRN 01/12/20 [History] oxyCODONE 5 mg PO Q6H PRN 01/12/20 [History] Celecoxib 100 mg PO BID 04/29/20 [History] SitaGLIPtin [Januvia] 100 mg PO DAILY 04/29/20 [History] Past Medical History HEENT History: Reports: Otitis Media Cardiovascular History: Reports: Bypass, CAD, High Cholesterol, Hypertension Respiratory History: Reports: Sleep Apnea, SOB Other Respiratory History: uses inhaler and has home O2, but doesn't know what has Gastrointestinal History: Reports: GERD, Hiatal Hernia Genitourinary History: Reports: None Musculoskeletal History: Reports: Back Pain, Chronic Neurological History: Reports: None Psychiatric History: Reports: None Endocrine/Metabolic History: Reports: Diabetes, Type II Hematologic History: Reports: None Immunologic History: Reports: None Oncologic (Cancer) History: Reports: None Dermatologic History: Reports: Other (See Below) Other Dermatologic History: Boil under L) arm (10/14/18) - Infectious Disease History Infectious Disease History: Reports: Chicken Pox - Past Surgical History Head Surgeries/Procedures: Reports: None HEENT Surgical History: Reports: Tonsillectomy, Other (See Below) 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 Cardiovascular Surgical History: Reports: Carotid Stents, Coronary Artery Bypass Respiratory Surgical History: Reports: Tracheostomy Other Respiratory Surgeries/Procedures: now closed GI Surgical History: Reports: None Musculoskeletal Surgical History: Reports: Arthroscopic Knee Social & Family History - Family History Family Medical History: No Pertinent Family History - Caffeine Use Caffeine Use: Reports: Coffee - Living Situation & Occupation Living situation: Reports: Alone Occupation: Disabled ED ROS GENERAL - Review of Systems Review Of Systems: Comprehensive ROS is negative, except as noted in HPI. ED EXAM, GENERAL - Physical Exam Exam: See Below Exam Limited By: No Limitations General Appearance: Alert, Anxious, Mild Distress, Obese Eye Exam: Bilateral Eye: Normal Inspection Nose: Normal Inspection Throat/Mouth: Normal Lips Head: Atraumatic, Normocephalic Neck: Non-Tender, Other (Trach in place without inner canula, near complete occlussion with mucus plug and blood clot) Respiratory/Chest: Chest Non-Tender, Decreased Breath Sounds. No: Rales, Rhonchi, Wheezing Cardiovascular: Regular Rate, Rhythm GI/Abdominal: Normal Bowel Sounds, Soft, Non-Tender Back Exam: Normal Inspection Extremities: Normal Inspection Neurological: Alert, Oriented, No Motor/Sensory Deficits Psychiatric: Anxious Skin Exam: Warm, Dry, Intact, Normal Color, No Rash Course - Vital Signs Last Recorded V/S: Last Vital Signs Temp 96.1 F L 05/12/20 13:22 Pulse 88 05/12/20 13:22 Resp 20 05/12/20 13:22 BP 159/90 H 05/12/20 13:22 Pulse Ox 92 L 05/12/20 13:22 - Orders/Labs/Meds Orders: Active Orders 24 hr Category Date Time Status Airway/Trach [RT Tracheostomy Assessment] [RC] Care 05/12/20 13:29 Ordered ASDIRECTED Meds: Medications Discontinued Medications Generic Name Dose Route Start Last Admin Trade Name Freq PRN Reason Stop Dose Admin Ibuprofen 800 mg 05/12/20 13:25 Ibuprofen 800 Mg Tab PO 05/12/20 13:26 ONETIME ONE - Re-Assessments/Exams Free Text/Narrative Re-Assessment/Exam: 05/12/20 13:25 Trach suction and lavage by RT, pt much improved and wishes to go home now. Departure - Departure Time of Disposition: 13:20 Disposition: Home, Self-Care 01 Condition: Good Clinical Impression: Tracheostomy obstruction - Discharge Information *PRESCRIPTION DRUG MONITORING PROGRAM REVIEWED*: Not Applicable *COPY OF PRESCRIPTION DRUG MONITORING REPORT IN PATIENT ERIKA: Not Applicable Instructions: How to Suction a Tracheostomy Tube, Adult Forms: ED Department Discharge Additional Instructions: Follow up in clinic with your primary doctor or Dr. Pearce this week to discuss trach care and options. Sepsis Event Note (ED) - Focused Exam Vital Signs: Vital Signs Temp Pulse Resp BP Pulse Ox 05/12/20 13:22 96.1 F L 88 20 159/90 H 92 L - My Orders Last 24 Hours: My Active Orders 05/12/20 13:29 Airway/Trach [RT Tracheostomy Assessment] [RC] ASDIRECTED - Assessment/Plan Last 24 Hours: My Active Orders 05/12/20 13:29 Airway/Trach [RT Tracheostomy Assessment] [RC] ASDIRECTED I have read and agree with the documentation that has been completed regarding this visit. By signing this record, I attest that the documentation was completed in my physical presence and is an accurate record of the encounter.
== END 2020-05-12 13:30 | disposition home or self-care (01) ==
LOC: DL.ED 13:06
DX: J95.03 Malfunction of tracheostomy stoma (principal); I25.10 Atherosclerotic heart disease of native coronary artery without angina pectoris; E78.00 Pure hypercholesterolemia, unspecified; I10 Essential (primary) hypertension; E11.9 Type 2 diabetes mellitus without complications; Z79.84 Long term (current) use of oral hypoglycemic drugs; Z79.82 Long term (current) use of aspirin; Z79.899 Other long term (current) drug therapy; Z88.5 Allergy status to narcotic agent; Z88.6 Allergy status to analgesic agent; Z91.040 Latex allergy status; Z95.1 Presence of aortocoronary bypass graft
CPT/HCPCS: 99282; 99284; A9270

== ENCOUNTER 2020-05-13 17:44 | Observation (INO) | payer MEDICAID ==
--- NOTE | 2020-05-13 17:49 | EDM.PDOC ---
ED HPI GENERAL MEDICAL PROBLEM - General Chief Complaint: ENT Problem Stated Complaint: TROUBLE BREATHING Time Seen by Provider: 05/13/20 17:45 Source of Information: Reports: Patient, Old Records, RN, RN Notes Reviewed History Limitations: Reports: No Limitations - History of Present Illness INITIAL COMMENTS - FREE TEXT/NARRATIVE: Pt presents to ER from home for the second time in 24 hours with complaint of a blood clot stuck in his trach making it difficult to breath. 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 Not scheduled to see Dr. Pearce in [facility] until June 2020. Denies fever or any other complaints. Patient has supplies at home but states it plugged up before he could suction it himself and he was getting scared due to the difficulty breathing. Duration: Recurring Location: Reports: Neck, Chest Quality: Reports: Same as Previous Episode Severity: Severe Worsens with: Reports: Breathing Associated Symptoms: Reports: No Other Symptoms Throat Pain Score (Numeric/FACES): 4 - Related Data Allergies Allergy/AdvReac Type Severity Reaction Status Date / Time hydrocodone Allergy Severe Hives Verified 05/13/20 18:03 morphine Allergy Severe Hives Verified 05/13/20 18:03 codeine Allergy Mild Hives Verified 05/13/20 18:03 acetaminophen Allergy Hives Verified 05/13/20 18:03 [From Darvocet-N] propoxyphene napsylate Allergy Hives Verified 05/13/20 18:03 [From Darvocet-N] red dye Allergy Hives Verified 05/13/20 18:03 tramadol Allergy Hives Verified 05/13/20 18:03 Home Meds: Home Meds Metoprolol Succinate [Toprol XL] 50 mg PO DAILY 08/12/13 [History] atorvaSTATin [Lipitor] 40 mg PO BEDTIME 08/25/13 [History] metFORMIN [Glucophage XR] 1,000 mg PO BIDM 08/25/13 [History] Gabapentin 600 mg PO TID 04/24/14 [History] Ascorbic Acid [Vitamin C] 3,000 mg PO DAILY 12/30/14 [History] Furosemide 40 mg PO DAILY 12/30/14 [History] Lisinopril [Prinivil] 5 mg PO DAILY 12/30/14 [History] Vitamin B Complex 2 tab PO DAILY 11/22/15 [History] Glimepiride [Amaryl] 4 mg PO BID 10/14/18 [History] Ipratropium/Albuterol Sulfate [Iprat-Albut 0.5-3(2.5) MG/3 ML] 3 ml IH Q6H PRN 10/14/18 [History] Aspirin [Aspirin EC] 325 mg PO DAILY 01/12/20 [History] Ketorolac [Toradol] 10 mg PO Q6H PRN 01/12/20 [History] oxyCODONE 5 mg PO Q6H PRN 01/12/20 [History] Celecoxib 100 mg PO BID 04/29/20 [History] SitaGLIPtin [Januvia] 100 mg PO DAILY 04/29/20 [History] Past Medical History HEENT History: Reports: Otitis Media Cardiovascular History: Reports: Bypass, CAD, High Cholesterol, Hypertension Respiratory History: Reports: Sleep Apnea, SOB Other Respiratory History: uses inhaler and has home O2, but doesn't know what has Gastrointestinal History: Reports: GERD, Hiatal Hernia Genitourinary History: Reports: None Musculoskeletal History: Reports: Back Pain, Chronic Neurological History: Reports: None Psychiatric History: Reports: None Endocrine/Metabolic History: Reports: Diabetes, Type II Hematologic History: Reports: None Immunologic History: Reports: None Oncologic (Cancer) History: Reports: None Dermatologic History: Reports: Other (See Below) Other Dermatologic History: Boil under L) arm (10/14/18) - Infectious Disease History Infectious Disease History: Reports: Chicken Pox - Past Surgical History Head Surgeries/Procedures: Reports: None HEENT Surgical History: Reports: Tonsillectomy, Other (See Below) 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 Cardiovascular Surgical History: Reports: Carotid Stents, Coronary Artery Bypass Respiratory Surgical History: Reports: Tracheostomy Other Respiratory Surgeries/Procedures: now closed GI Surgical History: Reports: None Musculoskeletal Surgical History: Reports: Arthroscopic Knee Social & Family History - Family History Family Medical History: No Pertinent Family History - Tobacco Use Tobacco Use Status *Q: Current Every Day Tobacco User Tobacco Use Within Last Twelve Months: Cigarettes - Caffeine Use Caffeine Use: Reports: Coffee - Living Situation & Occupation Living situation: Reports: Alone Occupation: Disabled ED ROS GENERAL - Review of Systems Review Of Systems: Comprehensive ROS is negative, except as noted in HPI. ED EXAM, GENERAL - Physical Exam Exam: See Below Exam Limited By: No Limitations General Appearance: Alert, Anxious, Mild Distress, Obese Eye Exam: Bilateral Eye: Normal Inspection Nose: Normal Inspection, Normal Mucosa, No Blood Throat/Mouth: Other (Trach) Head: Atraumatic, Normocephalic Neck: Full Range of Motion, Other (Trach, inner cannula is out. Pt has raspy breath sounds with increased work of breathing enough to cause him heightened anxiety.) Respiratory/Chest: Chest Non-Tender, Respiratory Distress (Mild), Crackles, Stridor (Due to trach occlusion). No: Rhonchi, Wheezing Cardiovascular: Regular Rate, Rhythm Neurological: Alert, Oriented, No Motor/Sensory Deficits Psychiatric: Anxious Skin Exam: Warm, Dry Course - Vital Signs Last Recorded V/S: Last Vital Signs Temp 95.7 F L 05/13/20 17:58 Pulse 74 05/13/20 17:58 Resp 28 H 05/13/20 17:58 BP 105/52 L 05/13/20 17:58 Pulse Ox 94 L 05/13/20 17:58 - Orders/Labs/Meds Meds: Medications Discontinued Medications Generic Name Dose Route Start Last Admin Trade Name Denysq PRN Reason Stop Dose Admin Gabapentin 600 mg 05/13/20 18:14 Gabapentin 300 Mg Cap PO 05/13/20 18:15 ONETIME ONE Nicotine 21 mg 05/13/20 18:14 Nicotine 21 Mg/24 Hr Patch TRDERM 05/13/20 18:15 ONETIME ONE Oxycodone HCl 10 mg 05/13/20 18:15 Oxycodone 5 Mg Tab PO 05/13/20 18:16 ONETIME ONE - Re-Assessments/Exams Free Text/Narrative Re-Assessment/Exam: 05/13/20 Deep suction by RT produced a large blood clot the full diameter of the cannula and 2cm in length. Pt's reports significant relief post-suctioning. I consulted ENT via [facility]. Dr. Rinaldi advises the pt be transferred to [facility] for definitive treatment due to pt's at risk airway. However, no bed currently available at [facility]. Dr. Rinaldi suggests the pt be admitted to obs. here at [facility] for safety (pt lives alone) until a bed opens at [facility]. [facility] agrees that the first bed available will be held for the pt, and they will call to have the current [facility] hospitalist accept the pt, and Dr. Rinaldi agrees that he or Dr. Pearce will consult on the pt for ENT. Dr. Guallpa agrees to admit the pt here and is aware of the plan. Departure - Departure Time of Disposition: 18:51 (admitted to Dr. Guallpa) Disposition: Refer to Observation Condition: Fair Clinical Impression: Tracheostomy hemorrhage, Tracheostomy obstruction - Discharge Information *PRESCRIPTION DRUG MONITORING PROGRAM REVIEWED*: Not Applicable *COPY OF PRESCRIPTION DRUG MONITORING REPORT IN PATIENT ERIKA: Not Applicable Forms: ED Department Discharge Sepsis Event Note (ED) - Focused Exam Vital Signs: Vital Signs Temp Pulse Resp BP Pulse Ox 05/13/20 17:58 95.7 F L 74 28 H 105/52 L 94 L
[2020-05-13] MEDS ORDERED: Gabapentin 300 MG Cap PO ONE (18:14)
[2020-05-13] MEDS ORDERED: Nicotine 21 MG/24 Hr Patch TRDERM ONE (18:14)
[2020-05-13] MEDS ORDERED: oxyCODONE 5 MG Tab PO ONE (18:15)
[2020-05-13] MEDS ORDERED: Docusate Sodium 100 MG Cap PO PRN (20:38)
[2020-05-13] MEDS ORDERED: Acetaminophen 325 MG Tab PO PRN (20:38)
[2020-05-13] MEDS ORDERED: Ketorolac 10 MG Tab PO PRN (20:42)
[2020-05-13] MEDS ORDERED: Albuterol/Ipratropium 3.0-0.5 MG/3 ML Neb Soln NEB PRN (20:42)
[2020-05-13] MEDS ORDERED: Polyvinyl Alcohol 1.4% Ophth Soln 15 ML Bottle EYEBOTH PRN (20:42)
--- NOTE | 2020-05-13 20:52 | PCM.HP ---
H&P History of Present Illness - General Date of Service: 05/13/20 Admit Problem/Dx: Admission Diagnosis/Problem Admission Diagnosis/Problem Tracheostomy complication Pt presents to ER from home for the second time in 24 hours with complaint of a blood clot stuck in his trach making it difficult to breath. 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 Denies fever or any other complaints. Patient has supplies at home but states it plugged up before he could suction it himself and he was getting scared due to the difficulty breathing. In ER, Deep suction by RT produced a large blood clot the full diameter of the cannula and 2cm in length. Pt's reports significant relief post-suctioning. ENT via [facility]. Dr. Rinaldi was consulted by ER and he advised the pt be transferred to [facility] for definitive treatment due to pt's at risk airway. However, no bed currently available at [facility]. Dr. Rinaldi suggests the pt be admitted to obs. here at [facility] for safety (pt lives alone) until a bed opens at [facility]. [facility] agrees that the first bed available will be held for the pt, and they will call to have the current [facility] hospitalist accept the pt, and Dr. Rinaldi agrees that he or Dr. Pearce will consult on the pt for ENT. Pt was admitted for observation awaiting bed availability at [facility]. Source of Information: Patient, Provider (ER) History Limitations: Denies: Altered Mental Status - History of Present Illness Onset of Symptoms: Reports: Sudden Duration of Symptoms: Reports: Hour(s): Location: Reports: Chest (SOB) Throat Pain Score (Numeric/FACES): 4 - Related Data Allergies/Adverse Reactions: Allergies Allergy/AdvReac Type Severity Reaction Status Date / Time hydrocodone Allergy Severe Hives Verified 05/13/20 18:52 morphine Allergy Severe Hives Verified 05/13/20 18:52 codeine Allergy Mild Hives Verified 05/13/20 18:52 acetaminophen Allergy Hives Verified 05/13/20 18:52 [From Darvocet-N] propoxyphene napsylate Allergy Hives Verified 05/13/20 18:52 [From Darvocet-N] red dye Allergy Hives Verified 05/13/20 18:52 tramadol Allergy Hives Verified 04/05/21 18:52 Home Medications: Home Meds Metoprolol Succinate [Toprol XL] 50 mg PO DAILY 08/12/13 [History] atorvaSTATin [Lipitor] 40 mg PO WITHLUNCH 08/25/13 [History] metFORMIN [Glucophage XR] 1,000 mg PO BIDM 08/25/13 [History] Gabapentin 600 mg PO TID 04/24/14 [History] Ascorbic Acid [Vitamin C] 3,000 mg PO DAILY 12/30/14 [History] Furosemide 40 mg PO DAILY 12/30/14 [History] Lisinopril [Prinivil] 5 mg PO DAILY 12/30/14 [History] Vitamin B Complex 2 tab PO DAILY 12/30/14 [History] Glimepiride [Amaryl] 4 mg PO BIDMEALS 10/14/18 [History] Ipratropium/Albuterol Sulfate [Iprat-Albut 0.5-3(2.5) MG/3 ML] 3 ml IH Q6H PRN 10/14/18 [History] Aspirin [Aspirin EC] 325 mg PO DAILY 01/12/20 [History] Ketorolac [Toradol] 10 mg PO Q6H PRN 01/12/20 [History] oxyCODONE 5 mg PO Q6H PRN 01/12/20 [History] Celecoxib 100 mg PO BID 04/29/20 [History] SitaGLIPtin [Januvia] 100 mg PO WITHBREAKFAST 04/29/20 [History] Propylene Glycol/PEG 400/Pf [Systane 0.3-0.4% Eye Drop] 1 drop OP TID PRN 05/13/20 [History] cycloSPORINE [Restasis Multidose] 1 drop OP BID 05/13/20 [History] Past Medical History HEENT History: Reports: Otitis Media Cardiovascular History: Reports: Bypass, CAD, High Cholesterol, Hypertension Respiratory History: Reports: Sleep Apnea, SOB Other Respiratory History: uses inhaler and has home O2, but doesn't know what has Gastrointestinal History: Reports: GERD, Hiatal Hernia Genitourinary History: Reports: None Musculoskeletal History: Reports: Back Pain, Chronic Neurological History: Reports: Neuropathy, Diabetic Psychiatric History: Reports: None Endocrine/Metabolic History: Reports: Diabetes, Type II Hematologic History: Reports: None Immunologic History: Reports: None Oncologic (Cancer) History: Reports: None Dermatologic History: Reports: Other (See Below) Other Dermatologic History: Boil under L) arm (10/14/18) - Infectious Disease History Infectious Disease History: Reports: Chicken Pox - Past Surgical History Head Surgeries/Procedures: Reports: None HEENT Surgical History: Reports: Tonsillectomy, Other (See Below) 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 Cardiovascular Surgical History: Reports: Carotid Stents, Coronary Artery Bypass Respiratory Surgical History: Reports: Tracheostomy Other Respiratory Surgeries/Procedures: now closed GI Surgical History: Reports: None Musculoskeletal Surgical History: Reports: Arthroscopic Knee Social & Family History - Family History Family Medical History: No Pertinent Family History - Tobacco Use Tobacco Use Status *Q: Current Every Day Tobacco User Years of Tobacco use: 20 Packs/Tins Daily: 0.5 - Caffeine Use Caffeine Use: Reports: Soda - Recreational Drug Use Recreational Drug Use: No - Living Situation & Occupation Living situation: Reports: Alone Occupation: Disabled H&P Review of Systems - Review of Systems: Review Of Systems: See Below General: Denies: Fever, Chills HEENT: Reports: Other (taychystomy as above. Chronic dry eyes) Pulmonary: Reports: Shortness of Breath (resoved after deep suctioining ) Cardiovascular: Denies: Chest Pain Gastrointestinal: Denies: Abdominal Pain Musculoskeletal: Reports: Joint Pain (knee) Skin: Denies: Jaundice Psychiatric: Denies: Confusion Neurological: Denies: Confusion Immunologic: Denies: Anaphylaxis Exam - Exam Exam: See Below - Vital Signs Vital Signs: Last Vital Signs Temp 96.6 F L 05/13/20 19:37 Pulse 71 05/13/20 19:37 Resp 22 H 05/13/20 19:37 BP 119/63 05/13/20 19:37 Pulse Ox 97 05/13/20 19:37 Weight: 300 lb 9.6 oz - Exam Quality Assessment: No: Supplemental Oxygen General: Alert, Oriented HEENT: EOMI, Other (Traychyostomy in palce) Neck: Supple Lungs: Normal Respiratory Effort (Male) Exam: Deferred Rectal (Males) Exam: Deferred Extremities: Normal Inspection, Normal Range of Motion Skin: Intact Neurological: Cranial Nerves Intact Neuro Extensive - Mental Status: Oriented x3 Neuro Extensive - Motor, Sensory, Reflexes: CN II-XII Intact Psychiatric: Alert, Normal Affect, Normal Mood - Patient Data Lab Results Last 24 hrs: Laboratory Results - last 24 hr 05/13/20 05/13/20 Range/Units 19:45 20:40 POC Glucose 99 (70-105) mg/dl SARS-CoV-2 RNA (RIMA) Negative (NEGATIVE) *Q Meaningful Use (ADM) - VTE *Q VTE Anticoagulation Contraindications: Medical/Procedure Contrai Problem List Initiated/Reviewed/Updated: Yes Orders Last 24hrs: Active Orders 24 hr Category Date Time Status Admission Diagnosis [ADT] Routine ADT 05/13/20 19:28 Ordered Admission Status [Patient Status] [ADT] Routine ADT 05/13/20 19:28 Active Antiembolic Devices [RC] PER UNIT ROUTINE Care 05/13/20 20:40 Ordered Blood Glucose Check, Bedside [RC] WITHMEALSANDBED Care 05/13/20 20:38 Ordered Oxygen Therapy [RC] PRN Care 05/13/20 20:37 Ordered RT Aerosol Therapy [RC] ASDIRECTED Care 05/13/20 20:44 Ordered VTE/DVT Education [RC] PER UNIT ROUTINE Care 05/13/20 20:37 Ordered Vital Signs [RC] Q4H Care 05/13/20 20:37 Ordered Consistent Carbohydrate Diet [DIET] Diet 05/13/20 Dinner Ordered Chest 1V Frontal [CR] Routine Exams 05/13/20 20:38 Ordered BASIC METABOLIC PANEL,BMP [CHEM] Routine Lab 05/13/20 20:46 Ordered CBC WITH AUTO DIFF [HEME] Routine Lab 05/13/20 20:46 Ordered Acetaminophen [TylenoL] Med 05/13/20 20:38 Ordered 650 mg PO Q4H PRN Albuterol/Ipratropium [DuoNeb 3.0-0.5 MG/3 ML] Med 05/13/20 20:42 Ordered 3 ml NEB Q6H PRN Ascorbic Acid [Vitamin C] Med 05/14/20 09:00 Ordered 3,000 mg PO DAILY Aspirin [Ecotrin] Med 05/14/20 09:00 Ordered 325 mg PO DAILY Celecoxib [CeleBREX] Med 05/13/20 21:00 Ordered 100 mg PO BID Docusate Sodium [Colace] Med 05/13/20 20:38 Ordered 100 mg PO BID PRN Furosemide [Lasix] Med 05/14/20 09:00 Ordered 40 mg PO DAILY Gabapentin [Neurontin] Med 05/13/20 21:00 Ordered 600 mg PO TID Glimepiride [Amaryl] Med 05/14/20 08:00 Ordered 4 mg PO BIDMEALS Ketorolac [Toradol] Med 05/13/20 20:42 Ordered 10 mg PO Q6H PRN Lisinopril [Prinivil] Med 05/14/20 09:00 Ordered 5 mg PO DAILY Metoprolol Succinate [Toprol XL] Med 05/14/20 09:00 Ordered 50 mg PO DAILY Propylene Glycol/PEG 400/Pf [Systane 0.3-0.4% Eye Drop] Med 05/13/20 20:42 Ordered 1 drop OP TID PRN SitaGLIPtin Med 05/14/20 08:00 Ordered 100 mg PO WITHBREAKFAST Vitamin B Complex Med 05/14/20 09:00 Ordered 2 each PO DAILY atorvaSTATin [Lipitor] Med 05/14/20 12:00 Ordered 40 mg PO WITHLUNCH cycloSPORINE [Restasis Multidose] Med 05/13/20 21:00 Ordered 1 drop OP BID metFORMIN [Glucophage XR] Med 05/14/20 08:00 Ordered 1,000 mg PO BIDM oxyCODONE Med 05/13/20 20:42 Ordered 5 mg PO Q6H PRN Anticoagulation Contraindications VTE [AST] Per Unit Oth 05/13/20 20:38 Ordered Routine Isolation [COMM] Routine Oth 05/13/20 19:39 Active Sequential Compression Device [OM.PC] Per Unit Routine Oth 05/13/20 20:38 Orde red Resuscitation Status Routine Resus Stat 05/13/20 20:37 Ordered Medication Orders Acetaminophen (Acetaminophen 325 Mg Tab) 650 mg PO Q4H PRN PRN Reason: Pain (Mild 1-3)/fever Albuterol/Ipratropium (Albuterol/Ipratropium 3.0-0.5 Mg/3 Ml Neb Soln) 3 ml NEB Q6H PRN PRN Reason: breathing Aspirin (Aspirin 325 Mg Tab.Ec) 325 mg PO DAILY SHIRA Atorvastatin Calcium (Atorvastatin 10 Mg Tab) 40 mg PO WITHLUNCH SHIRA Celecoxib (Celecoxib 100 Mg Cap) 100 mg PO BID SHIRA Docusate Sodium (Docusate Sodium 100 Mg Cap) 100 mg PO BID PRN PRN Reason: Constipation Furosemide (Furosemide 40 Mg Tab) 40 mg PO DAILY SHIRA Gabapentin (Gabapentin 400 Mg Cap) 600 mg PO TID SHIRA Glimepiride (Glimepiride 2 Mg Tab) 4 mg PO BIDMEALS [facility] Ketorolac Tromethamine (Ketorolac 10 Mg Tab) 10 mg PO Q6H PRN PRN Reason: Pain Stop: 05/18/20 20:43 Metoprolol Succinate (Metoprolol Succinate 25 Mg Tab.Er) 50 mg PO DAILY [facility] Non-Formulary Medication (Ascorbic Acid [Vitamin C]) 3,000 mg PO DAILY [facility] Non-Formulary Medication (Cyclosporine [Restasis Multidose]) 1 drop OP BID [facility] Non-Formulary Medication (Lisinopril [Prinivil]) 5 mg PO DAILY [facility] Non-Formulary Medication (Metformin [Glucophage Xr]) 1,000 mg PO BIDM [facility] Non-Formulary Medication (Propylene Glycol/Peg 400/Pf [Systane 0.3-0.4% Eye Drop]) 1 drop OP TID PRN PRN Reason: Dry Eyes Non-Formulary Medication (Sitagliptin) 100 mg PO WITHBREAKFAST [facility] Oxycodone HCl (Oxycodone 5 Mg Tab) 5 mg PO Q6H PRN PRN Reason: Pain Vitamin B Complex (Vitamin B Complex Cap) 2 each PO DAILY [facility] Assessment/Plan Comment:: Taychystomy obstruction with clots: to be transfered to [facility] for ENT once bed become availbe DM, CAD, post CABG, Morbid obesity, OA, dry eyes Continue with home medications Hold off heparin for DVT due to bleeidng in trachystomy and since he is ambulatory. Full code
[2020-05-13] MEDS ORDERED: Non-Formulary Medication 1 Each (Cyclosporine [Restasis Multidose] 5.5 ML Drops) OP SCH (21:00)
[2020-05-13] MEDS: Gabapentin 300 MG Cap PO SCH (21:01)
[2020-05-13] MEDS: oxyCODONE 5 MG Tab PO PRN (21:14)
[2020-05-13] MEDS: Celecoxib 100 MG Cap PO SCH (21:14)
[2020-05-13 21:25] LABS: CHLORIDE,CL 98 mmol/L (98-107); SODIUM,NA 138 mmol/L (136-145)
--- NOTE | 2020-05-13 21:34 | CR ---
PROCEDURE INFORMATION: Exam: XR Chest Exam date and time: 05/13/2020 9:03 PM Age: 54 years old Clinical indication: Other: SOB, tracheostomy obstruction; Prior surgery; Surgery date: 6+ months; Additional info: SOB , tachystomy obstruction TECHNIQUE: Imaging protocol: XR of the chest Views: 1 view. Total images: 1 COMPARISON: CT Ang Chest 01/12/2020 11:47 AM FINDINGS: Lungs: Minimal central pulmonary venous congestion. The lung bases are limited in evaluation due to body habitus. Pleural spaces: Unremarkable. No pleural effusion. No pneumothorax. Heart/Mediastinum: Minimally enlarged cardiopericardial silhouette. Bones/joints: Sternotomy wires. Tracheostomy tube in place not well visualized. IMPRESSION: 1. Minimally enlarged cardiopericardial silhouette with mild central pulmonary venous congestion. 2. Lung bases difficult to assess due to body habitus.
[2020-05-14] MEDS: oxyCODONE 5 MG Tab PO PRN ×3 (03:10→14:55)
[2020-05-14] MEDS ORDERED: Glimepiride 2 MG Tab PO SCH (08:00)
[2020-05-14] MEDS ORDERED: Non-Formulary Medication 1 Each (Sitagliptin 100 MG Tablet) PO SCH (08:00)
[2020-05-14] MEDS ORDERED: Non-Formulary Medication 1 Each (Metformin [Glucophage Xr] 500 MG Tab.Er) PO SCH (08:00)
[2020-05-14] MEDS ORDERED: metFORMIN 500 MG Tab PO SCH (08:00)
[2020-05-14] MEDS: Gabapentin 300 MG Cap PO SCH ×2 (08:54→13:13)
[2020-05-14] MEDS: Celecoxib 100 MG Cap PO SCH (08:57)
[2020-05-14] MEDS ORDERED: Furosemide 40 MG Tab PO SCH (09:00)
[2020-05-14] MEDS ORDERED: Ascorbic Acid 500 MG Tab PO SCH (09:00)
[2020-05-14] MEDS ORDERED: Aspirin 325 MG Tab.EC PO SCH (09:00)
[2020-05-14] MEDS ORDERED: Metoprolol Succinate 50 MG Tab.ER PO SCH (09:00)
[2020-05-14] MEDS ORDERED: Lisinopril 5 MG Tab PO SCH (09:00)
[2020-05-14] MEDS ORDERED: Vitamin B Complex Cap PO SCH (09:00)
--- NOTE | 2020-05-14 09:47 | PCM.DCSUM1 ---
Discharge Summary - Hospital Course Free Text/Narrative:: Pt presents to ER from home for the second time in 24 hours with complaint of a blood clot stuck in his trach making it difficult to breathe. 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 Denies fever or any other complaints. Patient has supplies at home but states it plugged up before he could suction it himself and he was getting scared due to the difficulty breathing. In ER, deep suction by RT produced a large blood clot the full diameter of the cannula and 2cm in length. Pt's reports significant relief post-suctioning. ENT via [facility]. Dr. Rinaldi was consulted by ER and he advised the pt be transferred to [facility] for definitive treatment due to pt's at risk airway. However, no bed currently available at [facility]. Dr. Rinaldi suggests the pt be admitted to obs. here at [place] for safety (pt lives alone) until a bed opens at [facility]. [facility] agrees that the first bed available will be held for the pt, and they will call to have the current [facility] hospitalist accept the pt, and Dr. Rinaldi agrees that he or Dr. Pearce will consult on the pt for ENT. Pt was admitted for observation awaiting bed availability at [facility]. He had no event event overnight. Plan to be transferred to [facility] once bed becomes available. - Discharge Data Discharge Date: 05/14/20 Discharge Disposition: DC/Tfer to Acute Hospital 02 Condition: Good - Referral to Home Health Primary Care Physician: PCP None - Discharge Plan *PRESCRIPTION DRUG MONITORING PROGRAM REVIEWED*: Not Applicable *COPY OF PRESCRIPTION DRUG MONITORING REPORT IN PATIENT ERIKA: Not Applicable Home Medications: Home Meds Metoprolol Succinate [Toprol XL] 50 mg PO DAILY 08/12/13 [History] atorvaSTATin [Lipitor] 40 mg PO WITHLUNCH 08/25/13 [History] Gabapentin 600 mg PO TID 04/24/14 [History] Ascorbic Acid [Vitamin C] 3,000 mg PO DAILY 12/30/14 [History] Furosemide 40 mg PO DAILY 12/30/14 [History] Lisinopril [Prinivil] 5 mg PO DAILY 12/30/14 [History] Vitamin B Complex 2 tab PO DAILY 12/30/14 [History] Glimepiride [Amaryl] 4 mg PO BIDMEALS 10/14/18 [History] Ipratropium/Albuterol Sulfate [Iprat-Albut 0.5-3(2.5) MG/3 ML] 3 ml IH Q6H PRN 10/14/18 [History] Aspirin [Aspirin EC] 325 mg PO DAILY 01/12/20 [History] Ketorolac [Toradol] 10 mg PO Q6H PRN 01/12/20 [History] oxyCODONE 5 mg PO Q6H PRN 01/12/20 [History] Celecoxib 100 mg PO BID 04/29/20 [History] SitaGLIPtin [Januvia] 100 mg PO WITHBREAKFAST 04/29/20 [History] Propylene Glycol/PEG 400/Pf [Systane 0.3-0.4% Eye Drop] 1 drop OP TID PRN 05/13/20 [History] cycloSPORINE [Restasis Multidose] 1 drop OP BID 05/13/20 [History] metFORMIN [Glucophage] 1,000 mg PO BIDMEALS 05/13/20 [History] Acetaminophen [Tylenol] 650 mg PO Q4H PRN tablet 05/14/20 [Rx] Aspirin [Ecotrin EC] 325 mg PO DAILY tab.ec 05/14/20 [Rx] metFORMIN [Glucophage] 1,000 mg PO BIDMEALS tablet 05/14/20 [Rx] Oxygen Therapy Mode: Room Air Forms: ED Department Discharge Referrals: PCP,None [Primary Care Provider] - - Discharge Summary/Plan Comment DC Time >30 min.: No - General Info Functional Status: Reports: Pain Controlled - Review of Systems General: Denies: Fever HEENT: Reports: Other (traych with mild secretion to the inner cannula) Pulmonary: Denies: Shortness of Breath, Cough Cardiovascular: Denies: Chest Pain Neurological: Denies: Confusion Psychiatric: Denies: Confusion - Patient Data Vitals - Most Recent: Last Vital Signs Temp 98 F 05/14/20 02:00 Pulse 69 05/14/20 09:05 Resp 20 05/14/20 04:00 BP 114/54 L 05/14/20 09:05 Pulse Ox 95 05/14/20 04:00 Weight - Most Recent: 300 lb 9.6 oz I&O - Last 24 hours: Intake & Output 04/05/21 04/06/21 04/06/21 22:59 06:59 14:59 Intake Total 850 200 Balance 850 200 Lab Results - Last 24 hrs: Laboratory Results - last 24 hr 05/13/20 05/13/20 05/13/20 Range/Units 19:45 20:40 20:57 WBC 14.3 H (5.0-10.0) 10^3/uL RBC 5.08 (4.6-6.2) 10^6/uL Hgb 15.4 (14.0-18.0) g/dL Hct 45.7 (40.0-54.0) % MCV 90.0 (80-100) fL MCH 30.3 (27.0-34.0) pg MCHC 33.7 (33.0-35.0) g/dL Plt Count 244 (150-450) 10^3/uL Neut % (Auto) 69.9 (42.2-75.2) % Lymph % (Auto) 19.6 L (20.5-50.1) % [place] % (Auto) 8.0 (2-8) % Eos % (Auto) 1.9 (1.0-3.0) % Baso % (Auto) 0.6 (0.0-1.0) % Sodium (136-145) mmol/L Potassium (3.5-5.1) mmol/L Chloride (98-107) mmol/L Carbon Dioxide (21-32) mmol/L Anion Gap (7-13) mEq/L BUN (7-18) mg/dL Creatinine (0.70-1.30) mg/dL Est Cr Clr Drug Dosing mL/min Estimated GFR (MDRD) Glucose (70-99) mg/dL POC Glucose 99 (70-105) mg/dl Calcium (8.5-10.1) mg/dL SARS-CoV-2 RNA (RIMA) Negative (NEGATIVE) 05/13/20 Range/Units 20:57 WBC (5.0-10.0) 10^3/uL RBC (4.6-6.2) 10^6/uL Hgb (14.0-18.0) g/dL Hct (40.0-54.0) % MCV (80-100) fL MCH (27.0-34.0) pg MCHC (33.0-35.0) g/dL Plt Count (150-450) 10^3/uL Neut % (Auto) (42.2-75.2) % Lymph % (Auto) (20.5-50.1) % [place] % (Auto) (2-8) % Eos % (Auto) (1.0-3.0) % Baso % (Auto) (0.0-1.0) % Sodium 138 (136-145) mmol/L Potassium 4.0 (3.5-5.1) mmol/L Chloride 98 (98-107) mmol/L Carbon Dioxide 29 (21-32) mmol/L Anion Gap 15.0 H (7-13) mEq/L BUN 13 (7-18) mg/dL Creatinine 0.79 (0.70-1.30) mg/dL Est Cr Clr Drug Dosing 104.62 mL/min Estimated GFR (MDRD) > 60 Glucose 86 (70-99) mg/dL POC Glucose (70-105) mg/dl Calcium 9.3 (8.5-10.1) mg/dL SARS-CoV-2 RNA (RIMA) (NEGATIVE) Med Orders - Current: Current Medications Acetaminophen (Acetaminophen 325 Mg Tab) 650 mg PO Q4H PRN PRN Reason: Pain (Mild 1-3)/fever Albuterol/Ipratropium (Albuterol/Ipratropium 3.0-0.5 Mg/3 Ml Neb Soln) 3 ml NEB Q6H PRN PRN Reason: breathing Last Admin: 05/13/20 22:27 Dose: 3 ml Documented by: Artificial Tears (Polyvinyl Alcohol 1.4% Ophth Soln 15 Ml Bottle) 0 ml EYEBOTH TID PRN PRN Reason: Dry Eyes Ascorbic Acid (Ascorbic Acid 500 Mg Tab) 3,000 mg PO DAILY [facility] Last Admin: 05/14/20 08:55 Dose: 3,000 mg Documented by: Aspirin (Aspirin 325 Mg Tab.Ec) 325 mg PO DAILY [facility] Last Admin: 05/14/20 08:56 Dose: 325 mg Documented by: Atorvastatin Calcium (Atorvastatin 20 Mg Tab) 40 mg PO WITHLUNCH [facility] Celecoxib (Celecoxib 100 Mg Cap) 100 mg PO BID [facility] Last Admin: 05/14/20 08:57 Dose: 100 mg Documented by: Docusate Sodium (Docusate Sodium 100 Mg Cap) 100 mg PO BID PRN PRN Reason: Constipation Furosemide (Furosemide 40 Mg Tab) 40 mg PO DAILY [facility] Last Admin: 05/14/20 08:56 Dose: 40 mg Documented by: Gabapentin (Gabapentin 300 Mg Cap) 600 mg PO TID [facility] Last Admin: 05/14/20 08:54 Dose: 600 mg Documented by: Glimepiride (Glimepiride 2 Mg Tab) 4 mg PO BIDMEALS [facility] Last Admin: 05/14/20 08:56 Dose: 4 mg Documented by: Ketorolac Tromethamine (Ketorolac 10 Mg Tab) 10 mg PO Q6H PRN PRN Reason: Pain Stop: 05/18/20 20:43 Lisinopril (Lisinopril 5 Mg Tab) 5 mg PO DAILY [facility] Last Admin: 05/14/20 09:05 Dose: 5 mg Documented by: Metformin HCl (Metformin 500 Mg Tab) 1,000 mg PO BIDMEALS [facility] Last Admin: 05/14/20 08:56 Dose: 1,000 mg Documented by: Metoprolol Succinate (Metoprolol Succinate 50 Mg Tab.Er) 50 mg PO DAILY [facility] Last Admin: 05/14/20 09:05 Dose: 50 mg Documented by: Non-Formulary Medication (Cyclosporine [Restasis Multidose]) 1 drop OP BID [facility] Non-Formulary Medication (Sitagliptin) 100 mg PO WITHBREAKFAST [facility] Oxycodone HCl (Oxycodone 5 Mg Tab) 5 mg PO Q6H PRN PRN Reason: Pain Last Admin: 05/14/20 09:05 Dose: 5 mg Documented by: Vitamin B Complex (Vitamin B Complex Cap) 2 each PO DAILY [facility] Last Admin: 05/14/20 08:54 Dose: 2 each Documented by: Discontinued Medications Gabapentin (Gabapentin 300 Mg Cap) 600 mg PO ONETIME ONE Stop: 05/13/20 18:15 Last Admin: 05/13/20 18:37 Dose: 600 mg Documented by: Nicotine (Nicotine 21 Mg/24 Hr Patch) 21 mg TRDERM ONETIME ONE Stop: 05/13/20 18:15 Last Admin: 05/13/20 18:38 Dose: 21 mg Documented by: Non-Formulary Medication (Metformin [Glucophage Xr]) 1,000 mg PO BIDM [facility] Oxycodone HCl (Oxycodone 5 Mg Tab) 10 mg PO ONETIME ONE Stop: 05/13/20 18:16 Last Admin: 05/13/20 18:37 Dose: 10 mg Documented by: - Exam Quality Assessment: Denies: Supplemental Oxygen General: Reports: Alert, Oriented, No Acute Distress Neck: Reports: Other (traych with mild secretion to the inner cannula) Lungs: Reports: Clear to Auscultation Cardiovascular: Reports: Regular Rate, Regular Rhythm Skin: Reports: Intact Neurological: Reports: No New Focal Deficit Psy/Mental Status: Reports: Normal Affect *Q Meaningful Use (DIS) - VTE *Q VTE Anticoagulation Contraindications: Medical/Procedure Contrai
[2020-05-14] MEDS ORDERED: atorvaSTATin 20 MG Tab PO SCH (12:00)
[2020-05-14 13:18] VITALS: PULSE 64
--- NOTE | 2020-05-14 14:59 | PCM.SN.2 ---
- Free Text/Narrative Note: pt accepted by Dr. Newton. Pt was informed remains stable . no change in his condition
[2020-05-14 15:11] VITALS: BP 96/61
== END 2020-05-14 15:30 ==
LOC: DL.ED 17:44 → DL.MS 19:28
PROVIDERS: ADMIT Internal Medicine; ATTEND Internal Medicine
DX: J95.03 Malfunction of tracheostomy stoma (principal); I25.10 Atherosclerotic heart disease of native coronary artery without angina pectoris; E66.01 Morbid (severe) obesity due to excess calories; E11.40 Type 2 diabetes mellitus with diabetic neuropathy, unspecified; F17.210 Nicotine dependence, cigarettes, uncomplicated; E78.00 Pure hypercholesterolemia, unspecified; I10 Essential (primary) hypertension; Z20.822 Contact with and (suspected) exposure to COVID-19; Z95.1 Presence of aortocoronary bypass graft; Z79.899 Other long term (current) drug therapy; Z98.890 Other specified postprocedural states; Z88.5 Allergy status to narcotic agent; Z88.8 Allergy status to other drugs, medicaments and biological substances; Z79.84 Long term (current) use of oral hypoglycemic drugs
CPT/HCPCS: 36415; 71045; 80048; 82962; 85025; 87635; 99284; A9270; G0378; 99285-25; J7620-GY; U0002

== ENCOUNTER 2020-12-12 02:53 | Emergency (ER) | payer MEDICAID ==
[2020-12-12 03:21] VITALS: BP 126/93; PULSE 81
--- NOTE | 2020-12-12 03:28 | EDM.PDOC ---
ED HPI GENERAL MEDICAL PROBLEM - General Chief Complaint: Upper Extremity Injury/Pain Stated Complaint: LEFT HAND KEEPS GETTING SWELLED UP. PAIN Time Seen by Provider: 12/12/20 03:05 Source of Information: Reports: Patient, RN, RN Notes Reviewed History Limitations: Reports: No Limitations - History of Present Illness INITIAL COMMENTS - FREE TEXT/NARRATIVE: Justus is a 55 y/o male POD #3 following s/p right carpal tunnel release who presents to the ED via personal vehicle with complaints of right wrist swelling. The patient states he spoke with his surgeon's on-call team who suggested he have evaluation for re-wrapping the extremity. The patient attests to the sensation of tightness around his wrist, as well as zinging pain radiating from wrist up into elbow. He states he has been taking his oxycodone as prescribed. He denies loss of sensation. Left Arm Pain Score (Numeric/FACES): 8 - Related Data Allergies Allergy/AdvReac Type Severity Reaction Status Date / Time hydrocodone Allergy Severe Hives Verified 05/13/20 18:52 morphine Allergy Severe Hives Verified 05/13/20 18:52 codeine Allergy Mild Hives Verified 05/13/20 18:52 acetaminophen Allergy Hives Verified 05/13/20 18:52 [From Darvocet-N] propoxyphene napsylate Allergy Hives Verified 05/13/20 18:52 [From Darvocet-N] red dye Allergy Hives Verified 05/13/20 18:52 tramadol Allergy Hives Verified 05/13/20 18:52 Home Meds: Home Meds Metoprolol Succinate [Toprol XL] 50 mg PO DAILY 08/12/13 [History] atorvaSTATin [Lipitor] 40 mg PO WITHLUNCH 08/25/13 [History] Gabapentin 600 mg PO TID 04/24/14 [History] Ascorbic Acid [Vitamin C] 3,000 mg PO DAILY 12/30/14 [History] Furosemide 40 mg PO DAILY 12/30/14 [History] Lisinopril [Prinivil] 5 mg PO DAILY 12/30/14 [History] Vitamin B Complex 2 tab PO DAILY 12/30/14 [History] Glimepiride [Amaryl] 4 mg PO BIDMEALS 10/14/18 [History] Ipratropium/Albuterol Sulfate [Iprat-Albut 0.5-3(2.5) MG/3 ML] 3 ml IH Q6H PRN 10/14/18 [History] Aspirin [Aspirin EC] 325 mg PO DAILY 01/12/20 [History] Ketorolac [Toradol] 10 mg PO Q6H PRN 01/12/20 [History] oxyCODONE 5 mg PO Q6H PRN 01/12/20 [History] Celecoxib 100 mg PO BID 04/29/20 [History] SitaGLIPtin [Januvia] 100 mg PO WITHBREAKFAST 04/29/20 [History] Propylene Glycol/PEG 400/Pf [Systane 0.3-0.4% Eye Drop] 1 drop OP TID PRN 05/13/20 [History] cycloSPORINE [Restasis Multidose] 1 drop OP BID 05/13/20 [History] metFORMIN [Glucophage] 1,000 mg PO BIDMEALS 05/13/20 [History] Acetaminophen [Tylenol] 650 mg PO Q4H PRN tablet 05/14/20 [Rx] Aspirin [Ecotrin EC] 325 mg PO DAILY tab.ec 05/14/20 [Rx] metFORMIN [Glucophage] 1,000 mg PO BIDMEALS tablet 05/14/20 [Rx] Past Medical History HEENT History: Reports: Otitis Media Cardiovascular History: Reports: Bypass, CAD, High Cholesterol, Hypertension Respiratory History: Reports: Sleep Apnea, SOB Other Respiratory History: uses inhaler and has home O2, but doesn't know what has Gastrointestinal History: Reports: GERD, Hiatal Hernia Genitourinary History: Reports: None Musculoskeletal History: Reports: Back Pain, Chronic Neurological History: Reports: Neuropathy, Diabetic Psychiatric History: Reports: None Endocrine/Metabolic History: Reports: Diabetes, Type II Hematologic History: Reports: None Immunologic History: Reports: None Oncologic (Cancer) History: Reports: None Dermatologic History: Reports: Other (See Below) Other Dermatologic History: Boil under L) arm (10/14/18) - Infectious Disease History Infectious Disease History: Reports: Chicken Pox - Past Surgical History Head Surgeries/Procedures: Reports: None HEENT Surgical History: Reports: Tonsillectomy, Other (See Below) 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 Cardiovascular Surgical History: Reports: Carotid Stents, Coronary Artery Bypass Respiratory Surgical History: Reports: Tracheostomy GI Surgical History: Reports: None Musculoskeletal Surgical History: Reports: Arthroscopic Knee Social & Family History - Family History Family Medical History: No Pertinent Family History - Tobacco Use Tobacco Use Status *Q: Current Every Day Tobacco User Years of Tobacco use: 30 Packs/Tins Daily: 0.5 Used Tobacco, but Quit: No - Caffeine Use Caffeine Use: Reports: Coffee - Recreational Drug Use Recreational Drug Use: No - Living Situation & Occupation Living situation: Reports: Alone Occupation: Disabled Review of Systems - Review of Systems Review Of Systems: Comprehensive ROS is negative, except as noted in HPI. ED EXAM, GENERAL - Physical Exam Exam: See Below Exam Limited By: No Limitations General Appearance: Alert, No Apparent Distress, Anxious Eye Exam: Bilateral Eye: EOMI, Normal Inspection, PERRL (3mm) Ears: Normal External Exam, Hearing Grossly Normal Nose: Normal Inspection Throat/Mouth: Normal Inspection, Normal Oropharynx, Normal Voice, No Airway Compromise Head: Atraumatic, Normocephalic Neck: Normal Inspection, Full Range of Motion Respiratory/Chest: No Respiratory Distress, Lungs Clear, Chest Non-Tender Cardiovascular: Normal Peripheral Pulses, Regular Rate, Rhythm, No Gallop, No Murmur, No Rub Peripheral Pulses: 2+: Radial (L), Radial (R) GI/Abdominal: Normal Bowel Sounds, Soft, No Distention, No Abnormal Bruit, No Mass, Pelvis Stable (Male) Exam: Deferred Rectal (Males) Exam: Deferred Extremities: Normal Capillary Refill, Arm Pain (To left posterior wrist), Limited Range of Motion, Other (Binu wrap in place over kerlix dressing). No: Joint Swelling, Increased Warmth, Mottled, Pallor, Redness Neurological: Alert, Oriented, CN II-XII Intact, Normal Cognition, Normal Gait, No Motor/Sensory Deficits Psychiatric: Normal Affect, Anxious Skin Exam: Warm, Dry, Intact, Normal Color, No Rash. No: Cyanosis, Jaundice, Mottled, Pallor Course - Vital Signs Last Recorded V/S: Last Vital Signs Temp 97.3 F 12/12/20 03:04 Pulse 81 12/12/20 03:04 Resp 20 12/12/20 03:04 BP 126/93 H 12/12/20 03:04 Pulse Ox 98 12/12/20 03:04 - Re-Assessments/Exams Free Text/Narrative Re-Assessment/Exam: 12/12/20 Binu bandage removed and rewrapped. Patient verbalized improvement in pain and sensation of swelling to wrist. Departure - Departure Time of Disposition: 03:26 Disposition: Home, Self-Care 01 Condition: Good Clinical Impression: Post-op pain, History of carpal tunnel surgery of right wrist - Discharge Information *PRESCRIPTION DRUG MONITORING PROGRAM REVIEWED*: Not Applicable *COPY OF PRESCRIPTION DRUG MONITORING REPORT IN PATIENT ERIKA: Not Applicable Instructions: Acute Pain, Adult Referrals: PCP,None [Primary Care Provider] - Forms: ED Department Discharge Additional Instructions: 1.) Continue on your previously prescribed medications. 2.) Follow up with your hand surgeon tomorrow morning to discuss pain management needs. 3.) Continue to elevated wrist and arm for comfort. 4.) Return to the emergency department with any persistent or worsening symptoms despite medications and supportive cares. Sepsis Event Note (ED) - Evaluation Sepsis Screening Result: No Definite Risk - Focused Exam Vital Signs: Vital Signs Temp Pulse Resp BP Pulse Ox 12/12/20 03:04 97.3 F 81 20 126/93 H 98
== END 2020-12-12 03:34 | disposition home or self-care (01) ==
LOC: DL.ED 02:53
DX: G89.18 Other acute postprocedural pain (principal); M25.531 Pain in right wrist; I25.810 Atherosclerosis of coronary artery bypass graft(s) without angina pectoris; E78.00 Pure hypercholesterolemia, unspecified; Z88.5 Allergy status to narcotic agent; I10 Essential (primary) hypertension; E11.40 Type 2 diabetes mellitus with diabetic neuropathy, unspecified; Z72.0 Tobacco use; Z88.6 Allergy status to analgesic agent; Z98.890 Other specified postprocedural states; Z91.048 Other nonmedicinal substance allergy status; Z79.82 Long term (current) use of aspirin; Z79.84 Long term (current) use of oral hypoglycemic drugs; Z79.899 Other long term (current) drug therapy
CPT/HCPCS: 99283

== ENCOUNTER 2022-04-30 02:16 | Emergency (ER) | payer MEDICAID ==
[2022-04-30] MEDS ORDERED: methylPREDNISolone Sodium Succinate 125 MG/2 ML SDV IM ONE (02:44)
== END 2022-04-30 02:58 | disposition home or self-care (01) ==
LOC: DL.ED 02:16
DX: M54.41 Lumbago with sciatica, right side (principal); E11.40 Type 2 diabetes mellitus with diabetic neuropathy, unspecified; E78.00 Pure hypercholesterolemia, unspecified; I10 Essential (primary) hypertension; Z88.5 Allergy status to narcotic agent; Z91.041 Radiographic dye allergy status; Z88.8 Allergy status to other drugs, medicaments and biological substances; Z79.899 Other long term (current) drug therapy; Z79.82 Long term (current) use of aspirin; Z79.84 Long term (current) use of oral hypoglycemic drugs
CPT/HCPCS: 96372; 99283; J2930

== ENCOUNTER 2023-02-11 14:01 | Emergency (ER) | payer MEDICAID ==
[2023-02-11 15:46] LABS: CORONAVIRUS COVID-19 NAA NEGATIVE (NEGATIVE); INFLUENZA A NAA POSITIVE (NEGATIVE); INFLUENZA B NAA NEGATIVE (NEGATIVE); RESPIRATORY SYNCYTIAL VIR NAA NEGATIVE (NEGATIVE)
[2023-02-11] MEDS ORDERED: Sodium Chloride 0.9% 1,000 ML IV ONE (15:57)
[2023-02-11] MEDS ORDERED: Albuterol/Ipratropium 3.0-0.5 MG/3 ML Neb Soln NEB ONE (15:57)
[2023-02-11] MEDS ORDERED: methylPREDNISolone Sodium Succinate 125 MG/2 ML SDV IVPUSH ONE (15:57)
[2023-02-11] MEDS ORDERED: Sodium Chloride 0.9% 10 ML Syringe FLUSH PRN (15:58)
[2023-02-11] MEDS ORDERED: oxyCODONE 5 MG Tab PO ONE (16:02)
[2023-02-11 16:19] LABS: BASOPHILS PERCENT AUTO 0.4 % (0.0-1.0); EOSINOPHILS PERCENT AUTO 0.1 % (1.0-3.0); HEMATOCRIT 51.9 % (40.0-54.0); HEMOGLOBIN 17.4 g/dL (14.0-18.0); LYMPHOCYTES PERCENT AUTO 11.5 % (20.5-50.1); MEAN CORPUSCULAR HEMOGLOBIN 29.9 pg (27.0-34.0); MEAN CORPUSCULAR HGB CONC 33.5 g/dL (33.0-35.0); MEAN CORPUSCULAR VOLUME 89.2 fL (80-100); MONOCYTES PERCENT AUTO 13.8 % (2-8); NEUTROPHILS PERCENT AUTO 74.2 % (42.2-75.2); PLATELET COUNT,PLT 154 10^3/uL (150-450); RED BLOOD CELL COUNT 5.82 10^6/uL (4.6-6.2); WHITE BLOOD CELL COUNT,WBC 7.7 10^3/uL (5.0-10.0)
[2023-02-11 16:46] LABS: ALANINE AMINOTRANSFERASE,ALT 51 U/L (16-63); ALBUMIN 3.1 g/dL (3.4-5.0); ALKALINE PHOSPHATASE 73 U/L (46-116); ANION GAP 10.4 mEq/L (7-13); ASPARTATE AMNIOTRANSFERASE,AST 45 U/L (15-37); BILIRUBIN TOTAL 0.5 mg/dL (0.2-1.0); BLOOD UREA NITROGEN,BUN 9 mg/dL (7-18); BUN/CREATININE RATIO 11.7 (No establ ref range); CALCIUM 8.7 mg/dL (8.5-10.1); CARBON DIOXIDE,CO2 33 mmol/L (21-32); CHLORIDE,CL 92 mmol/L (98-107); CREATININE 0.77 mg/dL (0.70-1.30); GLUCOSE RANDOM 103 mg/dL (70-99); POTASSIUM,K 3.4 mmol/L (3.5-5.1); PROTEIN TOTAL,TP 7.7 g/dL (6.4-8.2); SODIUM,NA 132 mmol/L (136-145)
[2023-02-11 16:49] LABS: A/G RATIO 0.67; ESTIMATED GFR 105 mL/min (>=60); LACTIC ACID 1.1 mmol/L (0.4-2.0)
== END 2023-02-11 17:35 | disposition home or self-care (01) ==
LOC: DL.ED 14:01
DX: J10.1 Influenza due to other identified influenza virus with other respiratory manifestations (principal); J96.11 Chronic respiratory failure with hypoxia; I25.810 Atherosclerosis of coronary artery bypass graft(s) without angina pectoris; I10 Essential (primary) hypertension; E78.00 Pure hypercholesterolemia, unspecified; E11.40 Type 2 diabetes mellitus with diabetic neuropathy, unspecified; F17.210 Nicotine dependence, cigarettes, uncomplicated; Z88.5 Allergy status to narcotic agent; Z88.8 Allergy status to other drugs, medicaments and biological substances; Z88.6 Allergy status to analgesic agent; Z91.041 Radiographic dye allergy status; Z20.822 Contact with and (suspected) exposure to COVID-19
CPT/HCPCS: 0241U; 36415; 71045; 80053; 83605; 84145; 85025; 94640; 96361; 96374; 99284; A9270; J2930; J7030; J3490; J7620-GY

== ENCOUNTER 2023-10-28 19:25 | Emergency (ER) | payer MEDICAID ==
[2023-10-28] MEDS: Take Home: Clindamycin HCl 150 MG, 12 Cap Pack PO ONE (20:04)
[2023-10-28] MEDS: Take Home: Lidocaine 2% Viscous Solution 15 ML UD, 2 Cup Pack PO ONE (20:04)
[2023-10-28] MEDS: oxyCODONE 5 MG Tab PO ONE (20:14)
== END 2023-10-28 20:14 | disposition home or self-care (01) ==
LOC: DL.ED 19:25
DX: K04.7 Periapical abscess without sinus (principal); I10 Essential (primary) hypertension; E11.40 Type 2 diabetes mellitus with diabetic neuropathy, unspecified; I25.10 Atherosclerotic heart disease of native coronary artery without angina pectoris; E78.00 Pure hypercholesterolemia, unspecified; K21.9 Gastro-esophageal reflux disease without esophagitis; Z95.1 Presence of aortocoronary bypass graft; Z79.84 Long term (current) use of oral hypoglycemic drugs; Z79.899 Other long term (current) drug therapy; Z88.5 Allergy status to narcotic agent; Z88.6 Allergy status to analgesic agent; Z88.8 Allergy status to other drugs, medicaments and biological substances; Z91.018 Allergy to other foods
CPT/HCPCS: 99282; A9270-GY

== ENCOUNTER 2023-10-29 01:39 | Emergency (ER) | payer MEDICAID ==
[2023-10-29] MEDS: Lidocaine 1% 5 ML VIAL INJECT ONE (01:50)
[2023-10-29] MEDS: Acetaminophen/oxyCODONE 325-5 MG Tab PO ONE (02:06)
[2023-10-29] MEDS: Dexamethasone 4 MG/ML SDV PO ONE (02:07)
== END 2023-10-29 02:13 | disposition home or self-care (01) ==
LOC: DL.ED 01:39
DX: K04.7 Periapical abscess without sinus (principal); F17.210 Nicotine dependence, cigarettes, uncomplicated; I10 Essential (primary) hypertension; E78.00 Pure hypercholesterolemia, unspecified; I25.10 Atherosclerotic heart disease of native coronary artery without angina pectoris; E11.9 Type 2 diabetes mellitus without complications; Z79.899 Other long term (current) drug therapy; Z79.82 Long term (current) use of aspirin; Z79.84 Long term (current) use of oral hypoglycemic drugs; Z88.8 Allergy status to other drugs, medicaments and biological substances; Z91.048 Other nonmedicinal substance allergy status; Z88.5 Allergy status to narcotic agent
CPT/HCPCS: 41800; 99282-25; A9270-GY; J1100; J3490

== ENCOUNTER 2024-02-16 10:02 | Day surgery (SDC) | payer MEDICAID ==
[~2024-02-16 10:02] MED LIST: Acetaminophen 325 MG Tab PO PRN
[2024-02-16] MEDS ORDERED: Midazolam 1 MG/ML 2 ML SDV IV ONE (10:03)
[2024-02-16] MEDS ORDERED: Dexamethasone 4 MG/ML SDV IV ONE (10:03)
[2024-02-16] MEDS ORDERED: Sodium Chloride 0.9% 10 ML Syringe IV ONE (10:03)
[2024-02-16] MEDS ORDERED: Acetaminophen 325 MG Tab PO PRN ×2 (10:15)
[2024-02-16] MEDS ORDERED: Ondansetron 4 MG/2 ML SDV IVPUSH PRN (10:15)
[2024-02-16] MEDS ORDERED: Acetaminophen/Codeine 300-30 MG Tab PO PRN (10:15)
[2024-02-16] MEDS: Sodium Chloride 0.9% 10 ML Syringe FLUSH PRN (10:29)
[2024-02-16] MEDS: Proparacaine 0.5% Ophth Soln 15 ML Bottle EYELF ONE ×2 (10:34→10:58)
[2024-02-16] MEDS: Povidone-Iodine 5% Sterile Ophth Soln 30 ML Bottle EYELF ONE ×2 (10:35→10:59)
[2024-02-16] MEDS: Moxifloxacin 0.5% Ophth Soln 3 ML Bottle EYELF ONE (10:35)
[2024-02-16] MEDS: Tropicamide 1% Ophth Soln 15 ML Bottle EYELF ONE (10:36)
[2024-02-16] MEDS: Timolol Maleate 0.5% Ophth Soln 5 ML Bottle EYELF ONE (10:37)
[2024-02-16] MEDS: Phenylephrine 10% Ophth Soln 5 ML Bot EYELF ONE (10:37)
[2024-02-16] MEDS: Cataract Ophth Solution EYELF ONE (10:38)
[2024-02-16] MEDS: Lidocaine 1% 30 ML SDV ONE (11:11)
[2024-02-16] MEDS: VANCOmycin 500 MG SDV EYELF ONE (11:11)
[2024-02-16] MEDS: Apraclonidine 0.5% Ophth Soln 5 ML Bot EYELF ONE (11:14)
[2024-02-16] MEDS: Diclofenac Sodium 0.1% Ophth Soln 5 ML Bottle EYELF ONE (11:15)
[2024-02-16] MEDS: Dexamethasone/Neomycin/Polymyxin B Ophth Oint 3.5 GM Tube EYELF ONE (11:16)
== END 2024-02-16 12:00 | disposition home or self-care (01) ==
LOC: DL.SDS 10:02
PROVIDERS: ATTEND Ophthalmology
DX: E11.36 Type 2 diabetes mellitus with diabetic cataract (principal); H25.812 Combined forms of age-related cataract, left eye; I10 Essential (primary) hypertension; I25.10 Atherosclerotic heart disease of native coronary artery without angina pectoris; E78.5 Hyperlipidemia, unspecified; F17.210 Nicotine dependence, cigarettes, uncomplicated; Z95.5 Presence of coronary angioplasty implant and graft; Z95.1 Presence of aortocoronary bypass graft; Z79.899 Other long term (current) drug therapy
CPT/HCPCS: 66984; A9270; J1100; J2250; J3370; J3490

== ENCOUNTER 2024-03-01 09:51 | Day surgery (SDC) | payer MEDICAID ==
[2024-03-01] MEDS ORDERED: Dexamethasone 4 MG/ML SDV IV ONE (09:52)
[2024-03-01] MEDS ORDERED: Sodium Chloride 0.9% 10 ML Syringe IV ONE (09:52)
[2024-03-01] MEDS ORDERED: Midazolam 1 MG/ML 2 ML SDV IV ONE (09:52)
[2024-03-01] MEDS ORDERED: Acetaminophen/Codeine 300-30 MG Tab PO PRN (10:15)
[2024-03-01] MEDS ORDERED: Ondansetron 4 MG/2 ML SDV IVPUSH PRN (10:15)
[2024-03-01] MEDS ORDERED: Acetaminophen 325 MG Tab PO PRN (10:15)
[2024-03-01] MEDS: Proparacaine 0.5% Ophth Soln 15 ML Bottle EYERT ONE ×2 (10:36→11:08)
[2024-03-01] MEDS: Sodium Chloride 0.9% 10 ML Syringe FLUSH PRN (10:36)
[2024-03-01] MEDS: Moxifloxacin 0.5% Ophth Soln 3 ML Bottle EYERT ONE (10:37)
[2024-03-01] MEDS: Tropicamide 1% Ophth Soln 15 ML Bottle EYERT ONE (10:38)
[2024-03-01] MEDS: Povidone-Iodine 5% Sterile Ophth Soln 30 ML Bottle EYERT ONE ×2 (10:38→11:08)
[2024-03-01] MEDS: Cataract Ophth Solution EYERT ONE (10:39)
[2024-03-01] MEDS: Timolol Maleate 0.5% Ophth Soln 5 ML Bottle EYERT ONE (10:39)
[2024-03-01] MEDS: Phenylephrine 10% Ophth Soln 5 ML Bot EYERT ONE (10:39)
[2024-03-01] MEDS: Dexamethasone/Neomycin/Polymyxin B Ophth Oint 3.5 GM Tube EYERT ONE (11:08)
[2024-03-01] MEDS: Diclofenac Sodium 0.1% Ophth Soln 5 ML Bottle EYERT ONE (11:08)
[2024-03-01] MEDS: Apraclonidine 0.5% Ophth Soln 5 ML Bot EYERT ONE (11:08)
[2024-03-01] MEDS: Lidocaine 1% 30 ML SDV ONE (11:10)
[2024-03-01] MEDS: VANCOmycin 500 MG SDV EYERT ONE (11:11)
== END 2024-03-01 12:02 | disposition home or self-care (01) ==
LOC: DL.SDS 09:51
PROVIDERS: ATTEND Ophthalmology
DX: E11.36 Type 2 diabetes mellitus with diabetic cataract (principal); H25.811 Combined forms of age-related cataract, right eye; I25.10 Atherosclerotic heart disease of native coronary artery without angina pectoris; E78.5 Hyperlipidemia, unspecified; I10 Essential (primary) hypertension; E66.813 Obesity, class 3; F17.210 Nicotine dependence, cigarettes, uncomplicated; Z79.899 Other long term (current) drug therapy; Z79.82 Long term (current) use of aspirin; Z88.5 Allergy status to narcotic agent; Z88.8 Allergy status to other drugs, medicaments and biological substances; Z91.041 Radiographic dye allergy status; Z68.41 Body mass index [BMI] 40.0-44.9, adult
CPT/HCPCS: A9270-GY; J1100; J2250; J3370; J3490; V2632

== ENCOUNTER 2025-01-01 18:18 | Emergency (ER) | payer MEDICAID ==
[2025-01-01 18:42] LABS: BASOPHILS PERCENT AUTO 0.9 % (0.0-1.0); EOSINOPHILS PERCENT AUTO 2.3 % (1.0-3.0); LYMPHOCYTES PERCENT AUTO 15.5 % (20.5-50.1); MONOCYTES PERCENT AUTO 10.0 % (2-8); NEUTROPHILS PERCENT AUTO 71.3 % (42.2-75.2); PLATELET COUNT,PLT 194 10^3/uL (150-450); RED BLOOD CELL COUNT 5.46 10^6/uL (4.6-6.2); WHITE BLOOD CELL COUNT,WBC 12.0 10^3/uL (5.0-10.0)
[2025-01-01 19:01] LABS: A/G RATIO 1.0; ALANINE AMINOTRANSFERASE,ALT 39.0 U/L (16-63); ASPARTATE AMNIOTRANSFERASE,AST 18.0 U/L (15-37); BILIRUBIN TOTAL 0.5 mg/dL (0.2-1.0); BLOOD UREA NITROGEN,BUN 18.0 mg/dL (7-18); CARBON DIOXIDE,CO2 26.0 mmol/L (21-32); CHLORIDE,CL 103.0 mmol/L (98-107); CREATININE 0.9 mg/dL (0.70-1.30); EST CRCL DRUG DOSING (CG) 86.56 mL/min; ESTIMATED GFR 99.0 mL/min (>=60); GLUCOSE RANDOM 135.0 mg/dL (70-99); POTASSIUM,K 4.0 mmol/L (3.5-5.1); PROTEIN TOTAL,TP 7.9 g/dL (6.4-8.2); SODIUM,NA 143.0 mmol/L (136-145)
[2025-01-01 19:02] LABS: INR 1.0 (0.9-1.2)
[2025-01-01 19:06] LABS: B-TYPE NATRIURETIC PEPTIDE,BNP 17.0 pg/ml (0-100)
[2025-01-01] MEDS ORDERED: Dexamethasone 4 MG/ML SDV IVPUSH ONE (21:29)
[2025-01-01 21:36] LABS: LACTIC ACID 0.8 mmol/L (0.4-2.0)
== END 2025-01-01 22:11 ==
LOC: DL.ED 18:18
DX: J04.10 Acute tracheitis without obstruction (principal); R06.02 Shortness of breath; R09.02 Hypoxemia; R13.10 Dysphagia, unspecified; I11.9 Hypertensive heart disease without heart failure; I25.10 Atherosclerotic heart disease of native coronary artery without angina pectoris; K21.9 Gastro-esophageal reflux disease without esophagitis; E11.40 Type 2 diabetes mellitus with diabetic neuropathy, unspecified; Z88.5 Allergy status to narcotic agent; Z91.041 Radiographic dye allergy status; Z88.6 Allergy status to analgesic agent; Z79.899 Other long term (current) drug therapy; Z79.82 Long term (current) use of aspirin; Z79.84 Long term (current) use of oral hypoglycemic drugs; E78.00 Pure hypercholesterolemia, unspecified; Z86.16 Personal history of COVID-19; Z90.89 Acquired absence of other organs; Z95.5 Presence of coronary angioplasty implant and graft; Z95.1 Presence of aortocoronary bypass graft
CPT/HCPCS: 36415; 70450; 71045; 80053; 83605; 83880; 84484; 85025; 85610; 87040; 87428-QW; 93005; 93010; 94640; 94762; 96365; 96368; 96375; 99285; 99285-25; A9270-GY; J0696; J1100; J3373; J7030; J7050